=== PATIENT | female | born 1950 | race Caucasian/White ===

== ENCOUNTER → 2018-11-23 | Outpatient (REF) | payer MEDICARE, MEDICAID ==
[2018-11-23 15:19] LABS: BACTERIA, URINE AUTO 1+ (NEGATIVE); MUCUS, URINE SMALL (NEGATIVE); RBC, URINE AUTO 2 /HPF (0-3); SQUAMOUS EPITHELIAL CELL UR AU 0 /HPF (0-6); WBC, URINE AUTO 32 /HPF (0-3)
== END ==
LOC: M SMT 14:44
PROVIDERS: ATTEND Specialist
DX: R35.0 Frequency of micturition (principal)
CPT/HCPCS: 51798; 81015; 87086; G0463

== ENCOUNTER → 2018-12-10 | Outpatient (REF) | payer MEDICARE, MEDICAID ==
[2018-12-10 18:56] LABS: APPEARANCE, URINE CLEAR (CLEAR); BACTERIA, URINE AUTO 1+ (NEGATIVE); BILIRUBIN, URINE AUTO NEGATIVE (NEGATIVE); BLOOD, URINE BLOOD NEGATIVE (NEGATIVE); COLOR, URINE YELLOW (YELLOW); GLUCOSE, URINE (UA) AUTO NEGATIVE (NEGATIVE); KETONE, URINE AUTO NEGATIVE (NEGATIVE); LEUKOCYTE ESTERASE, URINE AUTO 2+ (NEGATIVE); NITRITE, URINE AUTO NEGATIVE (NEGATIVE); PROTEIN, URINE AUTO 1+ mg/dL (NEGATIVE); RBC, URINE AUTO 5 /HPF (0-3); SPECIFIC GRAVITY URINE AUTO 1.017 (1.002-1.035); SQUAMOUS EPITHELIAL CELL UR AU 1 /HPF (0-6); TRANSITIONAL EPITHELIAL AUTO <1 /HPF; UROBILINOGEN, URINE AUTO 0.2 mg/dL (0.0-2.0); WBC, URINE AUTO 63 /HPF (0-3)
== END ==
LOC: M SMT 17:14
PROVIDERS: ATTEND Nurse Practitioner Women's Health
DX: N39.0 Urinary tract infection, site not specified (principal)

== ENCOUNTER → 2018-12-17 | Outpatient (REF) | payer MEDICARE, MEDICAID ==
[2018-12-17 19:02] LABS: APPEARANCE, URINE CLOUDY (CLEAR); BACTERIA, URINE AUTO 2+ (NEGATIVE); BILIRUBIN, URINE AUTO NEGATIVE (NEGATIVE); BLOOD, URINE BLOOD NEGATIVE (NEGATIVE); COLOR, URINE YELLOW (YELLOW); GLUCOSE, URINE (UA) AUTO NEGATIVE (NEGATIVE); KETONE, URINE AUTO NEGATIVE (NEGATIVE); LEUKOCYTE ESTERASE, URINE AUTO TRACE (NEGATIVE); MUCUS, URINE SMALL (NEGATIVE); NITRITE, URINE AUTO NEGATIVE (NEGATIVE); PROTEIN, URINE AUTO NEGATIVE (NEGATIVE); RBC, URINE AUTO 3 /HPF (0-3); SQUAMOUS EPITHELIAL CELL UR AU 0 /HPF (0-6); TRANSITIONAL EPITHELIAL AUTO <1 /HPF; UROBILINOGEN, URINE AUTO 0.2 mg/dL (0.0-2.0); WBC, URINE AUTO 10 /HPF (0-3)
== END ==
LOC: M SMT 17:39
PROVIDERS: ATTEND Nurse Practitioner Women's Health
DX: N39.0 Urinary tract infection, site not specified (principal); R35.0 Frequency of micturition
CPT/HCPCS: 51729; 51741; 51784; 51797; 81001; 87086; G0463

== ENCOUNTER → 2019-11-27 | Outpatient (CLI) | payer MEDICARE, MEDICAID ==
[~2019-11-27] MED LIST: ACET25TA12 PO; ALBU83IN INH; ALEN35TA6 PO; ALLE4TAB11 PO; AMLO25TA PO; BASA100I SC; CAL-TAB4 PO; CETI10CA13 PO; CLEAPOW10 PO; DONE10TA90 PO; FLOM0.4C39 PO; HYDR-3713 PO; LETR2.5T2 PO; LIDO1CRE2 TOP; LIDO5CRE6 EX; LOSA100T50 PO; MAGN250T7 PO; MAPA500C PO; MECL12.589 PO; MEMA10TA19 PO; METF-839 PO; METH-855 PO; MYRB50TA PO; NEUR100C PO; NO ITAB PO; NORV2TAB PO; NOVOINJ3 SC; PERF20NE2 INH; PRESCAP PO; PROAAER10 INH; PROBCAP14 PO; SERT-141 PO; SIMV20TA22 PO; TIZA2CAP PO; YUPE175S INH
== END ==
LOC: M LABSMTC 11:15
PROVIDERS: ATTEND Anesthesiology
DX: Z03.818 Encounter for observation for suspected exposure to other biological agents ruled out (principal); Z11.59 Encounter for screening for other viral diseases
CPT/HCPCS: C9803; U0003

== ENCOUNTER 2019-11-30 07:55 | Day surgery (SDC) | payer MEDICARE, MEDICAID ==
[~2019-11-30] VITALS: Ht 152.4 cm; Wt 90.3 kg
[~2019-11-30 07:55] MED LIST changes: +LIDOCAINE 1% MDV 20ML VIAL SQ PRN; +ceFAZolin SOD 2 GM in IV 1 EA IV ONE
[2019-11-30] MEDS ORDERED: ROCURONIUM BROMIDE 50 MG/5 ML VIAL As Ordered ONE (09:13)
[2019-11-30] MEDS ORDERED: ONDANSETRON 4MG/2ML VIAL As Ordered ONE (09:13)
[2019-11-30] MEDS ORDERED: propofoL 200 MG/20 ML VIAL As Ordered ONE (09:13)
[2019-11-30] MEDS ORDERED: LIDOCAINE 2% 100MG/5ML SDV (FOR ANES.) As Ordered ONE (09:13)
[2019-11-30] MEDS ORDERED: METOCLOPRAMIDE INJ 10MG/2ML VIAL (J2765 PER 1) As Ordered ONE (09:13)
[2019-11-30] MEDS ORDERED: fentaNYL 250 MCG/5 ML INJECTION (J3010) As Ordered ONE (09:14)
[2019-11-30] MEDS ORDERED: BUPIVACAINE HCL 0.25% 30ML VIAL As Ordered ONE (09:17)
[2019-11-30] MEDS ORDERED: LIDOCAINE 1% SDV 30ML VIAL As Ordered ONE (09:17)
[2019-11-30] MEDS ORDERED: LR 1,000 ML IV ONE (09:30)
[2019-11-30] MEDS ORDERED: ePHEDrine SULFATE 25 MG/5 ML(5MG/ML) SYRINGE As Ordered ONE (11:05)
[2019-11-30] MEDS ORDERED: SUGAMMADEX SODIUM 500 MG/5 ML VIAL (BRIDION) As Ordered ONE (11:05)
[2019-11-30] MEDS ORDERED: fentaNYL 100 MCG/2 ML INJECTION (J3010) IV PRN (11:45)
[2019-11-30] MEDS ORDERED: LR 1,000 ML IV SCH (11:45)
[2019-11-30] MEDS ORDERED: ONDANSETRON 4MG/2ML VIAL IV PRN (11:45)
[2019-11-30] MEDS ORDERED: oxyCODONE 5MG TAB PO PRN (11:45)
[2019-11-30] MEDS ORDERED: PERCOCET 5MG/325MG TAB PO PRN (11:45)
--- NOTE | 2019-11-30 12:02 | ROOPDOC ---
[facility] Report Of Operation Report of Operation DATE OF PROCEDURE: 11/30/19 PREPROCEDURE DIAGNOSIS: Urinary Retention. POSTPROCEDURE DIAGNOSIS: Urinary Retention. PROCEDURE: Open cystotomy with suprapubic catheter placement. SURGEON: Florence Shukla MD CUSTOMER SALES REPRESENTATIVE: None. ANESTHESIA: General. OPERATIVE INDICATIONS: This is an 68-year-old female with urinary retention managed with a chronic indwelling catheter. She was brought to the operating room today for the above procedure. DESCRIPTION OF PROCEDURE: The patient was brought to the operating room and generall anesthesia was administered. Prophylactic antibiotics were infused. She was placed in the supine position and prepped and draped in the usual sterile fashion. At this point, an 18Fr Smart catheter was inserted in the urethra and advanced into the bladder. The balloon was filled with 10mL of sterile water and the catheter was clamped off. At this point, an approximately 5-6 cm suprapubic incision was made. We then dissected down through the subcutaneous tissues. The rectus fascia was then opened using electrocautery and then the bellies of the rectus muscle were bluntly spread. At this point, the bladder was then filled with normal saline using the urethral catheter. At this point, we dissected down to the bladder. The bladder was then palpated and then a syringe was utilized to aspirate what appeared to be the bladder. And at this point, clear fluid did aspirate into the syringe. This confirmed we were indeed staring at the bladder. I then used a #2-[address] a pursestring stitch through the dome of the bladder. At this point, a cystotomy was then made in the middle of the pursestring stitch and then clear fluid drained out. I then inserted a #20-[place]ese catheter into the cystostomy and the balloon was filled with 7 mL of sterile water. The pursestring stitch was then tied down around the #20-[place] catheter. Once this was done, I then irrigated the pelvis around the bladder several times and then suctioned out the fluid. We then closed the rectus fascia with interrupted #1 non-looped PDS sutures in a [id number] fashion. Once the fascia was closed, the subcutaneous tissues were reapproximated using interrupted #3-0 Vicryl suture. The skin was then closed around the suprapubic catheter using a running #4-0 Monocryl subcuticular suture. The suprapubic catheter was then further secured to the skin with a #2-0 Prolene suture. At this point, Dermabond and dressings were applied, and this marked the conclusion of the procedure. The suprapubic catheter was connected to gravity drainage. The patient was then awakened from anesthesia and transported to the recovery room in stable condition. Estimated blood loss: 10 mL. Complications: None. Specimens: None. PLAN: The patient will follow up in clinic in 6 weeks for her first suprapubic catheter change. FLORENCE SHUKLA MD Nov 30, 2019 12:02
[2019-11-30 15:16] VITALS: BP 129/61
== END 2019-11-30 15:21 | disposition home or self-care (01) ==
LOC: M SDC 07:55
PROVIDERS: ATTEND Urology
CPT/HCPCS: 51040; J0690; J2405; J2765; J3010

== ENCOUNTER → 2020-03-08 | Outpatient (REF) | payer MEDICARE, MEDICAID ==
[~2020-03-08] MED LIST changes: +ALEN35TA54 PO; -ALEN35TA6 PO; -LIDOCAINE 1% MDV 20ML VIAL SQ PRN; -ceFAZolin SOD 2 GM in IV 1 EA IV ONE
[2020-03-08 18:06] LABS: APPEARANCE, URINE MANUAL CLOUDY (CLEAR); COLOR, URINE MANUAL LT YELLOW (YELLOW); PROTEIN, URINE MANUAL 3+ mg/dL (NEGATIVE); SPECIFIC GRAVITY,URINE MANUAL 1.005 (1.002-1.035)
[2020-03-08 18:07] LABS: BILIRUBIN, URINE MANUAL NEGATIVE (NEGATIVE); BLOOD URINE MANUAL POSITIVE (NEGATIVE); GLUCOSE, URINE (UA) MANUAL NEGATIVE (NEGATIVE); KETONE, URINE MANUAL NEGATIVE (NEGATIVE); LEUKOCYTE ESTERASE, URINE MAN POSITIVE (NEGATIVE); NITRITE, URINE MANUAL NEGATIVE (NEGATIVE); UROBILINOGEN, URINE MANUAL NORMAL (NORMAL)
[2020-03-08 18:09] LABS: RBC, URINE 15-20 /hpf (0-3); SQUAMOUS EPITHELIAL CELL URINE SMALL AMOUNT /hpf (SMALL AMT)
[2020-03-08 18:10] LABS: AMORPHOUS SEDIMENT, URINE LARGE AMOUNT (NEGATIVE); BACTERIA, URINE MOD AMOUNT; HYALINE CAST, URINE NONE SEEN /lpf (0-1); MUCUS, URINE LARGE AMOUNT (NEGATIVE); TRIPLE PHOSPHATE CRYSTAL,URINE SMALL AMOUNT /hpf
== END ==
LOC: M SMT 17:08
PROVIDERS: ATTEND Nurse Practitioner Women's Health
DX: N39.0 Urinary tract infection, site not specified (principal)

== ENCOUNTER 2021-05-22 15:05 | Inpatient (IN) | payer MEDICARE, MEDICAID ==
[~2021-05-22] VITALS: Ht 162.6 cm; Wt 88.2 kg
[~2021-05-22 15:05] MED LIST changes: -ALEN35TA54 PO; +ALEN35TA56 PO; +MECL-136 PO; -MECL12.589 PO
[2021-05-22] MEDS ORDERED: AMOX875T2 (18:33)
[2021-05-22] MEDS ORDERED: ATOR1TAB21 (18:33)
[2021-05-22] MEDS ORDERED: FLUC150T (18:33)
--- NOTE | 2021-05-22 20:55 | REPVR ---
PROCEDURE INFORMATION: Exam: CT Abdomen And Pelvis Without Contrast Exam date and time: 05/22/2021 7:09 PM Age: 70 years old Clinical indication: Device placement; Urinary device; Other: Suprapubic catheter; Additional info: Verify placement of suprapubic catheter TECHNIQUE: Imaging protocol: Computed tomography of the abdomen and pelvis without contrast. Radiation optimization: All CT scans at this facility use at least one of these dose optimization techniques: automated exposure control; mA and/or kV adjustment per patient size (includes targeted exams where dose is matched to clinical indication); or iterative reconstruction. COMPARISON: No relevant prior studies available. FINDINGS: Tubes, catheters and devices: Patient has reported history of a suprapubic catheter placed in the urinary bladder. There is no catheter demonstrated within the urinary bladder however there is an apparent dislocated catheter located in the low anterior abdominal wall. Lungs: Parenchymal infiltrate right lung base associated with thickened airways, findings suggestive of reactive airway disease and/or bronchitis with possible associated pneumonitis. Liver: Normal. No mass. Gallbladder and bile ducts: Normal. No calcified stones. No ductal dilation. Pancreas: Normal. No ductal dilation. Spleen: Normal. No splenomegaly. Adrenal glands: There is a focal hypodense mass in the right adrenal gland measuring 1.8 x 2.1 cm., consistent in appearance and density with a benign adrenal adenoma. Kidneys and ureters: There has been a right nephrectomy. Typically expected postoperative changes demonstrated. No mass demonstrated. There are multiple simple left renal cysts measuring up to 3.9 cm. No follow-up suggested. Hyperdense foci demonstrated in the left kidney measuring up to 3.9 x 3 cm which may represent hyperdense cysts. Correlation with ultrasound or MRI suggested. Stomach and bowel: There is increased feces throughout the colon consistent with constipation. Appendix: No evidence of appendicitis. Intraperitoneal space: Unremarkable. No free air. No significant fluid collection. Vasculature: The aortoiliac vessels demonstrate moderate atherosclerotic calcification. Lymph nodes: Unremarkable. No enlarged lymph nodes. Urinary bladder: Unremarkable as visualized. Reproductive: Unremarkable as visualized. Bones/joints: Age-indeterminate healing rib fractures right 9th and 11th ribs. Healed rib fractures left 9th and 10th ribs. Soft tissues: There is a small umbilical hernia. There is no evidence of incarceration. IMPRESSION: 1. Parenchymal infiltrate right lung base associated with thickened airways, findings suggestive of reactive airway disease and/or bronchitis with possible associated pneumonitis. 2. There is a focal hypodense mass in the right adrenal gland measuring 1.8 x 2.1 cm., consistent in appearance and density with a benign adrenal adenoma. 3. There is increased feces throughout the colon consistent with constipation. 4. There has been a right nephrectomy. Typically expected postoperative changes demonstrated. No mass demonstrated. 5. There are multiple simple left renal cysts measuring up to 3.9 cm. No follow-up suggested. Hyperdense foci demonstrated in the left kidney measuring up to 3.9 x 3 cm which may represent hyperdense cysts. Correlation with ultrasound or MRI suggested. 6. Patient has reported history of a suprapubic catheter placed in the urinary bladder. There is no catheter demonstrated within the urinary bladder however there is an apparent dislocated catheter located in the low anterior abdominal wall. COMMENTS: 1. Consistent with the [employer]'s Incidental Findings Committee white paper (J Am Piper Radiol 2017): For any incidental adrenal lesion greater than 1 cm but less than 4 cm classified in this report as benign, likely benign, or containing fat (including classification as an adenoma or myelolipoma), no follow-up imaging is recommended per consensus recommendations based on imaging criteria. Further lab evaluation could be pursued if warranted based on clinical findings. 2. Consistent with the [employer]'s Incidental Findings Committee white paper (J Am Piper Radiol 2018): Any incidental renal lesion less than 1 cm or classified as too small to characterize, or any incidental cystic renal lesion characterized as simple-appearing, is likely benign. No follow-up imaging is recommended for these lesions per consensus recommendations based on imaging criteria. Electronically signed by: Pelon Browne On 05/22/2021 20:55:05 PM
--- NOTE | 2021-05-22 21:38 | SMCUROLCON ---
Urology Consultation General Date of Consultation 05/22/21 Reason For Consultation This patient is seen for Suprapubic Catheter Problem. History of Present Illness THE PATIENT IS A 70-YEAR-OLD FEMALE WITH DEMENTIA WITH A NEUROGENIC BLADDER WITH CHRONIC URINARY RETENTION NOW BEING MANAGED BY A SUPRAPUBIC CATHETER WHICH WAS PLACED IN NOVEMBER 2019.. Patient present to the ER, the 14Fr SPT was not draining. The ER deflated the balloon allowing thje catheter to unkink and the was secondary drainage of urine via the subcutaneous pocket created by the 10 cc balloon. The SPT site was prepped with betadine and attempts to advance the 14 and 16 straight and coude tip catheters were unsuccessful. A a transurethral Smart will be inserted. Patient and family will f/u with [facility] to schedule a new cystostomy in the operating room. Allergies Allergies: Coded Allergies: Sulfa (Sulfonamide Antibiotics) (Verified Allergy, Intermediate, HIVES, 11/30/19) heparin (porcine) (Verified Allergy, Intermediate, HIVES, 11/30/19) latex (Verified Allergy, Intermediate, hives, 05/22/21) Vital Signs/I&O Vital Signs Date Time Temp Pulse Resp B/P (MAP) Pulse Ox O2 Delivery O2 Flow Rate FiO2 05/22/21 19:02 98.2 05/22/21 18:23 74 18 115/75 (88) 100 Nasal Cannula 2.0 Laboratory Data 24H Labs Laboratory Tests 2 05/22/21 20:19: Urine Color YELLOW, Urine Appearance HAZY, Urine pH 6.0, Urine Specific [place] 1.012, Urine Protein 1+H, Urine Glucose (UA) NEGATIVE, Urine Ketones NEGATIVE, Urine Blood 2+H, Urine Nitrite NEGATIVE, Urine Bilirubin NEGATIVE, Urine Urobilinogen 0.2, Urine Leukocyte Esterase 2+H, Urine WBC (Auto) 23H, Urine RBC (Auto) 83H, Urine Hyaline Casts (Auto) 0, Urine Bacteria (Auto) NEGATIVE, Urine Squamous Epithelial Cells 0, Urine Sperm (Auto) 05/22/21 20:42: Microbiology Microbiology 05/22/21 Urine Culture, Received Pending STEVO BRITT M.D. May 22, 2021 21:28
[2021-05-22 22:05] LABS: RSV AMPLIFICATION NEGATIVE (NEGATIVE)
[2021-05-23 00:08] LABS: ALBUMIN 2.8 GM/DL (3.2-5.2); ALT/SGPT 38 U/L (12-78); BILIRUBIN,DIRECT 0.1 MG/DL (0.0-0.2); BILIRUBIN,TOTAL 0.4 MG/DL (0.2-1.0); BLOOD UREA NITROGEN 19 MG/DL (7-18); CALCIUM LEVEL 8.2 MG/DL (8.8-10.2); CARBON DIOXIDE LEVEL 29 MEQ/L (21-32); CHLORIDE LEVEL 109 MEQ/L (98-107); CREATININE FOR GFR 0.76 MG/DL (0.55-1.30); GLOMERULAR FILTRATION RATE > 60.0 (>39); GLUCOSE, FASTING 58 MG/DL (70-100); NT-PRO BNP 1082 PG/ML (<125); POTASSIUM SERUM 3.1 MEQ/L (3.5-5.1); SODIUM LEVEL 147 MEQ/L (136-145); TOTAL PROTEIN 5.7 GM/DL (6.4-8.2)
[2021-05-23 00:11] LABS: EOS % 0.1 % (0.0-3.0); HEMATOCRIT 27.9 % (36.0-47.0); HEMOGLOBIN 7.7 g/dl (12.0-15.5); LYMPH # 2.7 10^3/uL (1.5-5.0); LYMPH % 13.1 % (24.0-44.0); MEAN CORPUSCULAR HEMOGLOBIN 21.8 pg (27.0-33.0); MEAN CORPUSCULAR HGB CONC 27.6 g/dl (32.0-36.5); MONO # 2.2 10^3/uL (0.0-0.8); MONO % 10.9 % (2.0-8.0); NEUTROPHILS # 15.2 10^3/uL (1.5-8.5); NEUTROPHILS % 74.6 % (36.0-66.0); PLATELET COUNT, AUTOMATED 237 10^3/uL (150-450); RED BLOOD COUNT 3.53 10^6/uL (4.00-5.40); WHITE BLOOD COUNT 20.4 10^3/uL (4.0-10.0)
--- NOTE | 2021-05-23 00:29 | REPVR ---
PROCEDURE INFORMATION: Exam: XR Chest Exam date and time: 05/22/21 (10:43pm) Age: 70 years old Clinical indication: Edema TECHNIQUE: Imaging protocol: Portable CXR Views: 1 view COMPARISON: CT ABDOMEN PELVIS of 05/22/21 FINDINGS: No prior chest films are available for comparison. Large patient size. The patient is rotated to an SENEGALESE position. Heart size is difficult to evaluate on this rotated film. No focal infiltrates. No pleural effusions. No significant vascular congestion. No pneumothorax. Prominent breast shadows. IMPRESSION: No acute findings. Electronically signed by: Pat Mallory On 05/23/2021 00:28:58 AM
--- NOTE | 2021-05-23 02:57 | HPEPDOC ---
[facility] Medical History & Physical Date of Admission May 23, 2021 Date of Service: May 23, 2021 Attending Physician: SHAVON SWAIN MD History and Physical CHIEF COMPLAINT: Suprapubic catheter dysfunction, potential placement HISTORY OF PRESENT ILLNESS: Patient is a 70-year-old female with a history of neurogenic bladder, GILBERT, CHF, COPD on 2 L oxygen at home, bedbound, presents from home due to suprapubic catheter dysfunction. The suprapubic catheter was removed in the ER and Smart catheter was placed after evaluation with urology. The patient was brought in by her daughter because the patient's daughter reported that she could not take care of her at home any longer. The patient was unaware of this and does not want to be in the hospital upon medical interview. She reports that she is not having any acute symptoms. I explained to the patient that her suprapubic catheter was not working and therefore we had to change it out for a Smart catheter. Even after explaining to her about the importance of being medically stable before she can be placed at home or anywhere else, the patient repeatedly asked why she was in the hospital. Patient's chart has her discharge summary from [facility] and [facility] form reporting that the patient is DNR, intubation trial. Patient's daughter's name is Angelica Benito to be contacted at [phone]. REVIEW OF SYSTEMS: unable to obtain complete ROS because the patient has dementia PAST MEDICAL / SURGICAL HISTORY: Type 2 diabetes mellitus, insulin-dependent Hypertension Malignant neoplasm of left breast, ER positive Obstructive sleep apnea compliant on CPAP COPD / Chronic bronchitis Benign adrenal adenoma Constipation Obesity Chronic pain Depression Recurrent falls Immobility, dependent on enabling machines, wheelchair, and devices Dyslipidemia Lumbar radiculopathy Lumbar spondylosis Lumbar spine Quan low listhesis Degenerative disc disease Displacement of lumbar intervertebral disks with radiculopathy Cervicalgia Neurological tremors in hands and legs Osteoporosis Osteoarthritis Scoliosis of the thoracic spine Chronic vascular dementia Alzheimer's disease Congestive heart failure Pulmonary embolism History of MRSA pneumonia Benign nodule in each lung Hepatic lesion Chronic seasonal and environmental allergies Chronic UTIs Suprapubic catheter for neurogenic bladder Incontinence of feces History of COVID-19 Aspiration risk Open cystostomy suprapubic catheter placement, 12/01/2019 SOCIAL HISTORY: Patient presents from her daughter's house. Patient reports that she smoked in the past, however cannot quantify the amount. Patient denies alcohol, marijuana, and illicit drug use. FAMILY HISTORY: Patient cannot recall. ALLERGIES: Please see below. HOME MEDICATIONS: Please see below. PHYSICAL EXAMINATION: Vital Signs Date Time Temp Pulse Resp B/P (MAP) Pulse Ox O2 Delivery O2 Flow Rate FiO2 05/22/21 15:20 68 100 Nasal Cannula 2.0 05/22/21 15:21 101/53 (69) 05/22/21 18:23 18 05/22/21 19:02 98.2 GENERAL APPEARANCE: Patient is in no acute distress, is on 3 L oxygen via nasal cannula, is lying in the gurney in the 30 degree upright position, expresses tangential thought process, has some memory deficits, however is cooperative on exam. HEENT: Normocephalic atraumatic, no ocular discharge, no rhinorrhea, mucous membranes moist, EOMI. CARDIOVASCULAR: Distant heart sounds consistent with pickwickian syndrome, regular rate and rhythm, no murmurs rubs or gallops. LUNGS: Bibasilar crackles appreciated, no rales or rhonchi. ABDOMEN: Soft, tender in right lower quadrant with deep pressure, nondistended, increased abdominal girth, suprapubic stoma present from previous suprapubic catheter. MUSCULOSKELETAL: Poor muscle tone, upper extremity strength 5 out of 5, lower extremity strength could not be appreciated as patient was unable to move her le gs. Patient reports that this is chronic. EXTREMITIES: No clubbing, onychomycosis of bilateral toenails, pitting edema present in bilateral lower extremities from feet to knees. NEUROLOGICAL: Cranial nerves II to XII intact, focal motor deficits as described above about lower extremities, memory deficits appreciated during medical interview. PSYCHIATRIC: Flat affect, alert and oriented to self, confused about where she is, unable to answer to what year it is. LABORATORY DATA: IMAGING: Chest x-ray, 05/22/2021no acute findings. Abdominal/pelvic CT, 05/22/2021arenchymal infiltrate right lung base associated with thickened airways, findings suggestive of reactive airway disease and/or bronchitis with possible associated pneumonitis. There is a focal hypodense mass in the right adrenal gland measuring 1.8 x 2.1 cm., consistent in appearance and density with a benign adrenal adenoma. There is increased feces throughout the colon consistent with constipation. There has been a right nephrectomy. Typically expected postoperative changes demonstrated. No mass demonstrated. There are multiple simple left renal cysts measuring up to 3.9 cm. No follow-up suggested. Hyperdense foci demonstrated in the left kidney measuring up to 3.9 x 3 cm which may represent hyperdense cysts. Correlation with ultrasound or MRI suggested. Patient has reported history of a suprapubic catheter placed in the urinary bladder. There is no catheter demonstrated within the urinary bladder however there is an apparent dislocated catheter located in the low anterior abdominal wall. MICROBIOLOGY:COVID negative ASSESSMENT/PLAN: Patient is a 70-year-old female with a complicated history who presents with suprapubic catheter dysfunction and hospitalized for potential placement. #Suprapubic catheter dysfunction Changed out suprapubic catheter and placed new Smart catheter Continue to monitor output out of Smart catheter #CAUTI / Neurogenic bladder with history of suprapubic catheter placed Urinalysis is positive Urologist saw patient in ED and advised suprapubic catheter to be switched to Smart catheter which was done in the ER Patient was already scheduled to be started on Augmentin 875 mg every 12 hours for 7 days # Hypoglycemia / IDDM Patient's admitting glucose level was in the 50s -f/u frequent FSBS -hypoglycemia protocol -D10 W Patient is normally on basal insulin: A.m. 36 units, p.m. 30 units Start sliding scale insulin at this time & holding basal insulin Continue to follow glucose levels to adjust basal insulin Hold home semaglutide Consistent carbohydrate diet/2 g sodium diet Continue home gabapentin for neuropathy ? #Leukocytosis -likely reactive because the patient was given prednisone 20 mg twice a day for 5 days starting on April 19, 2021 at [facility], unknown whether it she is still taking CXR was negative Patient was also prescribed 2 weeks of Augmentin, starting on April 19, 2021 at [facility] for community-acquired pneumonia Lactic acid and procalcitonin ordered Continue to monitor CBC with differential daily #Microcytic anemia -her Hg is 7.7 -f/u iron studies reticulocyte count and stool occult #Hypernatremia Likely secondary to low effective circulatory volume -pt is on D10 for hyperglycemia Continue to monitor BMP #Hypokalemia -replete K -f/u Mag #Elevated BNP -possibly due to unspecified type of CHF or pulmonary HTN Echo report could not be found Chest x-ray did not show congestion - continue to weigh daily and observe strict I's and O's. Titrate oxygen as needed, patient is on 2 to 3 L at home 2 g sodium diet #Pseudohypocalcemia -albumin is low -corrected calcium is 9.2 #Hx of Pulmonary Embolism -apixaban #History of COPD Continue home revefenacin Continue home albuterol Continue home formoterol #Dementia -she can't take care of herself and has dysphagia and fecal incontinence likely as a result of advance dementia Continue home memantine Continue home donepezil -aspiration precautions Nursing order placed for thickened liquids administration only Mechanical soft diet Use adult diapers -PFS consult has been placed for placement in a SNF #Osteoporosis Continue home alendronate, once weekly, last administered 05/20/2021. #GILBERT, compliant on CPAP Continue using home CPAP #Depression Continue home sertraline #History of environmental allergies Hold cetirizine home dose #Intertriginous rash Apply topical nystatin cream to intertriginous regions. #History of GERD Hold home famotidine Consider starting patient on Protonix, patient does have osteoporosis and is on alendronate for it so this should be used conservatively. #Recent history of Community-acquired PNA Continue patient's prednisone dose, 20 mg for 3 days According to discharge records patient started receiving azithromycin 250 milligrams tablets every Thursday and Thursday which were last taken 05/15/2021. According to the schedule the patient would be due for her next dose on 05/24/2021. Retrieve more details of these records to see if patient still needs azithromycin, as chest x-ray is clear. #Constipation Continue home probiotics Continue home bowel regimen #Neoplasm of the breast Continue home letrozole #Class 2 obesity -complicates care VTE prophylaxis: Patient to resume home apixaban Disposition: Admit to Med/Surg with telemetry, expect at least 2 midnight stay Home Medications Scheduled Acetaminophen (Mapap) 500 Mg Capsule, 500 MG PO Q6HP Alendronate Sodium (Alendronate Sodium) 35 Mg Tablet, 35 MG PO QWEEK Amlodipine Besylate (Amlodipine Besylate) 2.5 Mg Tablet, 5 MG PO DAILY Calcium Citrate/Vitamin D2 (Justen-Citrate Plus Vitamin D Tab) 1 Each Tablet, 1 TAB PO DAILY Cetirizine HCl (Allergy Relief) 10 Mg Capsule, 10 MG PO DAILY Donepezil HCl (Donepezil HCl) 10 Mg Tablet, 10 MG PO DAILY Formoterol Fumarate (Perforomist) 20 Mcg/2 Ml Vial.neb, 20 MCG INH BID Gabapentin (Neurontin) 100 Mg Capsule, 100 MG PO TID Insulin Aspart (Novolog Flexpen) 100 Unit/1 Ml Insuln.pen, 10 UNITS SC AC Insulin Glargine,Hum.rec.anlog (Basaglar Kwikpen U-100) 100 Unit/1 Ml Insuln.pen, 34 UNIT SC QHS Lactobacillus Acidophilus (Probiotic) 1 Each Capsule, 1 CAP PO DAILY Letrozole (Letrozole) 2.5 Mg Tablet, 2.5 MG PO DAILY Lidocaine (Lidocaine) 5 Gm Cream..g., 4 % TOP TIDP Losartan Potassium (Losartan Potassium) 100 Mg Tablet, 100 MG PO DAILY Memantine HCl (Memantine HCl) 10 Mg Tablet, 10 MG PO BID Methenamine Hippurate (Methenamine Hippurate) 1 Gm Tablet, 1 GM PO DAILY Mirabegron (Myrbetriq) 50 Mg Tab.er.24h, 50 MG PO DAILY Multivitamin with Minerals (Multiple Vitamin) 1 Each Tablet, 1 TAB PO DAILY Revefenacin (Yupelri) 175 Mcg/3 Ml Vial.neb, 175 MCG INH DAILY Sertraline Hcl (Sertraline HCl) 50 Mg Tablet, 50 MG PO DAILY Vit A/Vit C/Vit E/Zinc/Copper (Preservision Areds Softgel) 1 Each Capsule, 1 CAP PO DAILY Scheduled PRN Albuterol Sulf (Albuterol Sulfate) 2.5 Mg/3 Ml Vial.neb, 2.5 MG INH for SHORTNESS OF BREATH Albuterol Sulfate (Proair Hfa) 8.5 Gm Hfa.aer.ad, 2 PUFF INH Q6HP PRN for SHORTNESS OF BREATH Hydrocodone/Acetaminophen (Hydrocodone-Acetamin 5-325 mg) 1 Each Tablet, 1 TAB PO QPM PRN for PAIN MDD 4 Meclizine HCl (Meclizine HCl) 12.5 Mg Tablet, 25 MG PO DAILYPRN PRN for DIZZINESS Polyethylene Glycol 3350 (Clearlax) 116 Gm Powder, 1 POW PO PRN PRN for CONSTIPATION Miscellaneous Medications Amoxicillin/Potassium Clav (Amox-Clav 875-125 mg Tablet) 1 Each Tablet Atorvastatin Calcium (Atorvastatin Calcium) 20 Mg Tablet Fluconazole (Fluconazole) 150 Mg Tablet Allergies Coded Allergies: Sulfa (Sulfonamide Antibiotics) (Verified Allergy, Intermediate, HIVES, 11/30/19) heparin (porcine) (Verified Allergy, Intermediate, HIVES, 11/30/19) latex (Verified Allergy, Intermediate, hives, 05/22/21) A-FIB/CHADSVASC A-FIB History Current/History of A-Fib/PAF?: No Current PO Anticoag Therapy: Yes GME ATTESTATION GME ATTESTATION My faculty preceptor for this patient encounter was physically present during the encounter and was fully available. All aspects of the patient interview, examination, medical decision making process, and medical care plan development were reviewed and approved by the faculty preceptor. The faculty preceptor is aware and concurs with the plan as stated in the body of this note and will attest to such by his/her cosignature. ATTENDING NOTE time of service 120AM I examined the patient, discussed the case with and agree with the findings as documented. Rod Fuller DO May 23, 2021 02:57 SHAVON SWAIN MD May 23, 2021 05:25
[2021-05-23] MEDS ORDERED: ALBUTEROL 90 MCG/ACT 8GM HFA INHALER INH PRN (03:20)
[2021-05-23] MEDS ORDERED: CALCIUM CARBONATE 500 MG CHEW U/D PO ONE (03:20)
[2021-05-23] MEDS ORDERED: MOM 30ML SUSPENSION UDC PO PRN (03:30)
[2021-05-23 04:00] VITALS: O2SAT 97
[2021-05-23 04:12] VITALS: O2SAT 93
[2021-05-23] MEDS: KCL 10MEQ/100ML SWI (KRUN) 10 MEQ in IV 1 EA IV SCH ×3 (04:47→06:57)
[2021-05-23] MEDS ORDERED: D5W/0.9% SODIUM CHLORIDE 1,000 ML IV SCH (05:05)
[2021-05-23] MEDS ORDERED: GLUCAGON INJ 1MG VIAL SC PRN (05:05)
[2021-05-23] MEDS ORDERED: DEXTROSE 50% 50 ML SYRINGE IV PRN (05:05)
[2021-05-23] MEDS ORDERED: GLUCOSE 4GM CHEW TABLET PO PRN (05:05)
[2021-05-23 06:00] VITALS: BP 140/70
[2021-05-23] MEDS ORDERED: D10W 500 ML IV SCH ×2 (06:00)
[2021-05-23] MEDS: HumaLOG INSULIN (NovoLOG) PER UNIT SC SCH ×3 (06:00→17:37)
[2021-05-23] MEDS ORDERED: CAPS0.1C TOP (06:40)
[2021-05-23] MEDS ORDERED: ATOR1TAB21 PO (06:40)
[2021-05-23] MEDS ORDERED: CALC1TAB30 PO (06:40)
[2021-05-23] MEDS ORDERED: ELIQ5TAB PO (06:40)
[2021-05-23] MEDS ORDERED: VITMTA PO (06:40)
[2021-05-23] MEDS ORDERED: SEMA1PEN2 SQ (06:40)
[2021-05-23] MEDS ORDERED: ONDA4TAB6 PO (06:40)
[2021-05-23] MEDS ORDERED: METH-855 PO (06:40)
[2021-05-23] MEDS ORDERED: HOME MED LIST COMPLETE! XX SCH (06:40)
[2021-05-23] MEDS ORDERED: OXYC-517 PO (06:40)
[2021-05-23] MEDS ORDERED: OCUVTAB PO (06:40)
[2021-05-23] MEDS ORDERED: INSUDET SC ×2 (06:40)
[2021-05-23] MEDS ORDERED: FAMO1TAB11 PO (06:40)
[2021-05-23] MEDS ORDERED: CETI-14 PO (06:40)
[2021-05-23] MEDS ORDERED: LOSA25TA14 PO (06:40)
[2021-05-23] MEDS ORDERED: AUGM875T28 PO (06:40)
[2021-05-23] MEDS ORDERED: NYST1POW9 TOP (06:40)
[2021-05-23] MEDS ORDERED: POTA10TA67 PO (06:40)
[2021-05-23] MEDS ORDERED: MIRA1POW3 PO (06:40)
[2021-05-23] MEDS ORDERED: NAME10TA PO (06:40)
[2021-05-23] MEDS ORDERED: FURO20TA2 PO (06:40)
[2021-05-23] MEDS ORDERED: DILT240C47 PO (06:40)
[2021-05-23] MEDS ORDERED: BACITAB PO (06:40)
[2021-05-23] MEDS ORDERED: FLUC150T PO (06:40)
--- NOTE | 2021-05-23 06:44 | ECGEPIP ---
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
[2021-05-23] MEDS ORDERED: ALBUTEROL SULFATE 2.5 MG/0.5 ML INH NEB SOLN INH PRN (06:45)
[2021-05-23 07:10] LABS: ALBUMIN 2.9 GM/DL (3.2-5.2); ALT/SGPT 41 U/L (12-78); BILIRUBIN,TOTAL 0.4 MG/DL (0.2-1.0); BLOOD UREA NITROGEN 17 MG/DL (7-18); CALCIUM LEVEL 8.7 MG/DL (8.8-10.2); CARBON DIOXIDE LEVEL 31 MEQ/L (21-32); CHLORIDE LEVEL 108 MEQ/L (98-107); CREATININE FOR GFR 0.63 MG/DL (0.55-1.30); FERRITIN 13 NG/ML (8-252); GLOMERULAR FILTRATION RATE > 60.0 (>39); GLUCOSE, FASTING 57 MG/DL (70-100); IRON (FE) 17 UG/DL (50-170); MAGNESIUM LEVEL 2.2 MG/DL (1.8-2.4); PERCENT SATURATION 5.4 % (13.2-45.0); POTASSIUM SERUM 3.4 MEQ/L (3.5-5.1); SODIUM LEVEL 146 MEQ/L (136-145); TOTAL IRON BINDING CAPACITY 312 UG/DL (250-450); TOTAL PROTEIN 5.7 GM/DL (6.4-8.2)
[2021-05-23] MEDS ORDERED: NYSTATIN 100,000 UNITS/GM TOPICAL PWD 15 GM TOP PRN (07:15)
[2021-05-23] MEDS: FORMOTEROL FUMARATE 20 MCG/2 ML INHALATION SOLUTION (PERFOROMIST) INH SCH ×2 (07:54→19:08)
[2021-05-23] MEDS: OCUVITE 1 TAB PO SCH (08:32)
[2021-05-23] MEDS: FUROSEMIDE 20 MG TAB PO SCH (08:33)
[2021-05-23] MEDS: predniSONE 20 MG TAB PO SCH (08:33)
[2021-05-23] MEDS: GABAPENTIN 100 MG CAP PO SCH ×3 (08:33→20:46)
[2021-05-23] MEDS: CALCIUM/VITAMIN D 500 MG TAB PO SCH (08:33)
[2021-05-23] MEDS: guaiFENesin ER 600 MG TAB PO SCH ×2 (08:33→20:46)
[2021-05-23] MEDS: APIXABAN 5 MG TAB (ELIQUIS) PO SCH ×2 (08:33→20:46)
[2021-05-23] MEDS: MIRALAX *UNIT DOSE* 17GM PACKET PO SCH (08:33)
[2021-05-23] MEDS: MEMANTINE 5MG TABLET (NAMENDA) PO SCH ×2 (08:33→20:46)
[2021-05-23] MEDS: LOSARTAN 25 MG TAB PO SCH (08:34)
[2021-05-23] MEDS: POTASSIUM CHLORIDE 10MEQ SR TABLET PO SCH ×2 (08:34→20:46)
[2021-05-23] MEDS ORDERED: LOSARTAN 25 MG TAB PO SCH (09:00)
[2021-05-23] MEDS ORDERED: VITAMIN D (CHOLECALCIFEROL) 400 INTERNATIONAL UNITS TAB PO SCH (09:00)
[2021-05-23] MEDS ORDERED: MULTIVITAMINS/MINERALS THERAP 1 TAB PO SCH (09:00)
[2021-05-23] MEDS ORDERED: LOSARTAN 50MG TABLET PO SCH (09:00)
[2021-05-23] MEDS ORDERED: REVEFENACIN 175 MCG INH SCH (09:00)
[2021-05-23] MEDS ORDERED: AUGMENTIN 875 MG TAB PO SCH (09:00)
[2021-05-23] MEDS ORDERED: NYSTATIN CREAM 15 GM TOP SCH (09:00)
[2021-05-23 09:03] LABS: BASO % 0.1 % (0.0-1.0); EOS % 0.2 % (0.0-3.0); HEMATOCRIT 31.6 % (36.0-47.0); HEMOGLOBIN 8.6 g/dl (12.0-15.5); LYMPH # 2.1 10^3/uL (1.5-5.0); LYMPH % 11.5 % (24.0-44.0); MEAN CORPUSCULAR HEMOGLOBIN 21.7 pg (27.0-33.0); MEAN CORPUSCULAR HGB CONC 27.2 g/dl (32.0-36.5); MEAN CORPUSCULAR VOLUME 79.6 fl (80.0-96.0); MONO # 1.7 10^3/uL (0.0-0.8); MONO % 9.2 % (2.0-8.0); NEUTROPHILS # 14.4 10^3/uL (1.5-8.5); PLATELET COUNT, AUTOMATED 229 10^3/uL (150-450); RED BLOOD COUNT 3.97 10^6/uL (4.00-5.40); WHITE BLOOD COUNT 18.5 10^3/uL (4.0-10.0)
[2021-05-23] MEDS ORDERED: POTASSIUM CHLORIDE 10MEQ SR TABLET PO ONE (12:00)
[2021-05-23 12:39] LABS: BLOOD UREA NITROGEN 18 MG/DL (7-18); CALCIUM LEVEL 8.6 MG/DL (8.8-10.2); CARBON DIOXIDE LEVEL 31 MEQ/L (21-32); CHLORIDE LEVEL 102 MEQ/L (98-107); CREATININE FOR GFR 0.71 MG/DL (0.55-1.30); GLOMERULAR FILTRATION RATE > 60.0 (>39); GLUCOSE, FASTING 223 MG/DL (70-100); POTASSIUM SERUM 3.6 MEQ/L (3.5-5.1); SODIUM LEVEL 138 MEQ/L (136-145)
[2021-05-23] MEDS: cefTRIAXone SOD 1 GM in D5W MINI-BAG PLUS 50 ML IV SCH (13:40)
[2021-05-23 14:00] VITALS: BP 110/73
--- NOTE | 2021-05-23 14:07 | IPN ---
PROGRESS NOTE DATE: 05/23/2021 SUBJECTIVE: The patient is a little confused this morning but able to state if she has any pain. She denies dysuria, urgency, frequency, flank pain, fever or chills overnight. She is eating and wants to go home. No nausea or vomiting. No shortness of breath. OBJECTIVE: Vitals: Temperature 98, pulse 73, respiratory rate 20, blood pressure 145/72, 97% on two liters nasal cannula. General: Awake, alert and oriented to person, place and not to time, answering questions appropriately. No distress, no cyanosis or pallor. Lungs: Clear to auscultation, no wheezing or rales. Heart: S1, S2. Abdomen: Soft, Smart catheter in place, obese, positive bowel sounds in four quadrants. Extremities: No cyanosis or clubbing. LABORATORY DATA: White count 18.5, hemoglobin 8.6, hematocrit 31, platelet count 223. Sodium 146, potassium 3.4, chloride 108, bicarb 31, BUN 17, creatinine 0.063, glucose of 57. Laboratory data, imaging study, microbiology: Please see the chart. ASSESSMENT AND PLAN: This is a 70-year-old female with chronic dementia, lives in [place], with a chronic suprapubic catheter, found to have malfunctioning with leukocytosis and catheter associated urinary tract infection present on the hospital admission. She has history of neurogenic bladder with CHF, COPD on two liters of oxygen, bed-bound. ACTIVE ISSUES: 1. Suprapubic catheter dysfunction/catheter associated urinary tract infection. Patient was on Augmentin, changed to IV ceftriaxone until urine cultures are available. White count has decreased from 28,000 to 18,000. She is afebrile but is confused. 2. Acute delirium and chronic dementia due to UTI and malfunctioning suprapubic catheter. Continue with monitoring patient's hypernatremia, dehydration, electrolyte abnormalities and treat for infection with IV ceftriaxone until urine cultures have returned and with finalized sensitivities. 3. Hypernatremia due to decreased oral intake. Encourage fluid intake for now but limit to two liters due to history of CHF. 4. Hypokalemia. Supplemented. 5. CHF, diastolic dysfunction. Currently compensated. 6. Anemia. Repeat hemoglobin is 8.6, hematocrit of 31. No active bleeding. No RBC transfusion for now but we will continue to monitor. 7. COPD, compensated on two liters of oxygen. Decrease to keep saturations 88 to 92%. Currently 97 to 100%, two liters nasal cannula. 8. Bed-bound. Patient has care at home with history of neurogenic bladder. 9. Type 2 diabetes, insulin dependent. Continue on sliding scale insulin with coverage, finger sticks, q.a.c., h.s. 10. Hypertension, currently controlled. 11. History of left breast ER positive breast cancer. 12. GILBERT. Compliant with her CPAP. May resume CPAP in the hospital. 13. Depression, chronic. 14. Osteoporosis and osteoarthritis. Outpatient workup. 15. History of MRSA pneumonia. Monitor for symptoms. 16. History of COVID-19. Asymptomatic.
[2021-05-23 15:45] VITALS: O2SAT 91
[2021-05-23 16:00] LABS: HEMATOCRIT 27.3 % (36.0-47.0); HEMOGLOBIN 7.6 g/dl (12.0-15.5)
[2021-05-23] MEDS ORDERED: FUROSEMIDE 20MG/2ML VIAL (J1940) IV ONE (16:00)
[2021-05-23] MEDS: oxyCODONE 5MG TAB PO PRN ×2 (16:08→20:47)
[2021-05-23] MEDS: LACTOBACILLUS ACIDOPHILUS CAP (BACID) PO SCH (17:36)
[2021-05-23] MEDS: ATORVASTATIN 20 MG TAB PO SCH (20:42)
[2021-05-23] MEDS: DONEPEZIL 5 MG TAB PO SCH (20:46)
[2021-05-23] MEDS: LETROZOLE 2.5 MG TAB PO SCH (20:47)
[2021-05-23] MEDS ORDERED: ENTER DRUG NAME HERE (PATIENT'S OWN MED) MT SCH (21:00)
--- NOTE | 2021-05-23 21:00 | ECGEPIP ---
[facility] Test Date: 2021-05-23 Pat Name: LANA CUNNINGHAM Department: Room: [place] [address] Gender: Female White [employer]inder: EMELI : 1950 Requested By: Rod Trevino Order Number: [id number] Reading MD: Justice Nayak Measurements Intervals [place] Rate: 74 P: 33 [place]: 114 QRS: 29 QRSD: 82 T: 52 QT: 438 QTc: 486 Interpretive Statements Normal sinus rhythm with sinus arrhythmia Electronically Signed on 05-23-2021 21:00:49 EST by Justice Nayak
[2021-05-23 22:00] VITALS: BP 124/54
[2021-05-23 22:16] LABS: HEMOGLOBIN 7.3 g/dl (12.0-15.5)
[2021-05-24] VITALS (13 sets, daily range): BP systolic 100–147; BP diastolic 63–77; O2SAT 90
[2021-05-24] MEDS: HumaLOG INSULIN (NovoLOG) PER UNIT SC SCH ×5 (00:41→20:38)
[2021-05-24] MEDS: FORMOTEROL FUMARATE 20 MCG/2 ML INHALATION SOLUTION (PERFOROMIST) INH SCH ×2 (05:53→19:26)
[2021-05-24 06:47] LABS: BASO % 0.1 % (0.0-1.0); EOS # 0.1 10^3/uL (0.0-0.5); EOS % 0.6 % (0.0-3.0); HEMOGLOBIN 10.8 g/dl (12.0-15.5); LYMPH # 3.2 10^3/uL (1.5-5.0); LYMPH % 18.4 % (24.0-44.0); MEAN CORPUSCULAR HEMOGLOBIN 23.2 pg (27.0-33.0); MEAN CORPUSCULAR HGB CONC 29.2 g/dl (32.0-36.5); MEAN CORPUSCULAR VOLUME 79.6 fl (80.0-96.0); MONO # 2.1 10^3/uL (0.0-0.8); MONO % 12.4 % (2.0-8.0); NEUTROPHILS # 11.6 10^3/uL (1.5-8.5); NEUTROPHILS % 67.6 % (36.0-66.0); PLATELET COUNT, AUTOMATED 206 10^3/uL (150-450); RED BLOOD COUNT 4.65 10^6/uL (4.00-5.40); WHITE BLOOD COUNT 17.2 10^3/uL (4.0-10.0)
[2021-05-24 07:14] LABS: ALBUMIN 2.6 GM/DL (3.2-5.2); ALT/SGPT 47 U/L (12-78); BILIRUBIN,TOTAL 0.8 MG/DL (0.2-1.0); BLOOD UREA NITROGEN 24 MG/DL (7-18); CALCIUM LEVEL 8.6 MG/DL (8.8-10.2); CARBON DIOXIDE LEVEL 28 MEQ/L (21-32); CHLORIDE LEVEL 106 MEQ/L (98-107); CREATININE FOR GFR 0.83 MG/DL (0.55-1.30); GLOMERULAR FILTRATION RATE > 60.0 (>39); GLUCOSE, FASTING 148 MG/DL (70-100); POTASSIUM SERUM 4.6 MEQ/L (3.5-5.1); SODIUM LEVEL 142 MEQ/L (136-145); TOTAL PROTEIN 5.8 GM/DL (6.4-8.2)
[2021-05-24] MEDS: MIRALAX *UNIT DOSE* 17GM PACKET PO SCH (07:55)
[2021-05-24] MEDS: LOSARTAN 25 MG TAB PO SCH (07:56)
[2021-05-24] MEDS: OCUVITE 1 TAB PO SCH (07:57)
[2021-05-24] MEDS: GABAPENTIN 100 MG CAP PO SCH ×3 (07:57→20:35)
[2021-05-24] MEDS: guaiFENesin ER 600 MG TAB PO SCH ×2 (07:57→20:35)
[2021-05-24] MEDS: CALCIUM/VITAMIN D 500 MG TAB PO SCH (07:57)
[2021-05-24] MEDS: APIXABAN 5 MG TAB (ELIQUIS) PO SCH ×2 (07:58→20:36)
[2021-05-24] MEDS: POTASSIUM CHLORIDE 10MEQ SR TABLET PO SCH ×2 (07:58→20:36)
[2021-05-24] MEDS: MEMANTINE 5MG TABLET (NAMENDA) PO SCH ×2 (07:58→20:37)
[2021-05-24] MEDS: FUROSEMIDE 20 MG TAB PO SCH (07:58)
[2021-05-24] MEDS: predniSONE 20 MG TAB PO SCH (07:58)
[2021-05-24] MEDS ORDERED: VANCOMYCIN HCL 1,000 MG, VIAL MATE ADAPTER 1 EACH in NS 250 ML IV SCH (08:25)
[2021-05-24] MEDS ORDERED: SERTRALINE HCL 50 MG TAB PO SCH (09:00)
[2021-05-24 09:02] LABS: VITAMIN B12 LEVEL 901 PG/ML (247-911)
[2021-05-24 09:37] LABS: FOLATE 23.1 NG/ML (>5.4)
[2021-05-24] MEDS ORDERED: VANCOMYCIN HCL 1,000 MG, VIAL MATE ADAPTER 1 EACH in NS 250 ML IV ONE ×2 (10:00→11:00)
--- NOTE | 2021-05-24 10:20 | IPN ---
PROGRESS NOTE DATE: 05/24/2021 SUBJECTIVE: Patient's mentation has improved this morning. She is able to answer review of systems, no fever, chills, still complains of pain on her back, no nausea or vomiting. The patient has no Smart catheter in place. White count is still elevated at 17,000, MRSA detected. The patient was started on vancomycin this morning. OBJECTIVE: Vitals: Temperature 97.9, pulse 80, respiratory rate 18, blood pressure of 147/71, 92% on room air. General: Awake, alert and oriented to person and place, answering questions appropriately. No distress, no cyanosis. Lungs: Clear to auscultation, no wheezing or rales. Heart: S1, S2, sinus rhythm. Abdomen: Obese, soft, nontender. Smart in place. Extremities: No cyanosis, clubbing. Laboratory data, imaging study, microbiology have been reviewed. Please see the chart. ASSESSMENT AND PLAN: A 70-year-old female with chronic dementia, lives in [place], with chronic suprapubic catheter which was found to be malfunctioning with leukocytosis, admitted for a catheter associated urinary tract infection. She has history of neurogenic bladder, CHF, COPD, on home oxygen, two liters and bed-bound at baseline. IMPRESSION: 1. CAUTI. Catheter associated urinary tract infection secondary to malfunctioning suprapubic catheter, was on Augmentin, changed to IV ceftriaxone but urine culture is negative. White count was 28,000, down to 17,000 on IV ceftriaxone. MRSA screen is positive. She is on contact isolation, vancomycin started. Patient may be discharged on Levaquin as outpatient once white count is normal. Patient's urologist as outpatient followup. Continue with Smart at discharge. 2. Neurogenic bladder. Resume home medications. 3. Hypernatremia due to decreased oral intake, status post IV fluids, no signs of heart failure. 4. CHF, diastolic dysfunction. Compensated. 5. Acute delirium and chronic dementia due to UTI. Resolving. 6. Anemia thought to be hemodilutional but received RBC transfusion overnight, no signs of active bleeding. 7. COPD compensated on two liters of oxygen, bed bound, does not need a PT/OT evaluation, has 24/7 care at home. 8. Type 2 diabetes, insulin dependent on sliding scale. 9. Hypertension, uncontrolled. Wait until patient receives her morning medications and monitor subsequent blood pressure throughout the day. 10. History of left breast, ER positive breast cancer. 11. GILBERT on CPAP. 12. Depression. 13. Chronic osteoporosis, osteoarthritis, outpatient workup. 14. History of MRSA pneumonia. Monitor for symptoms. Still positive for MRSA on screen. Continue with isolation precautions. 15. History of COVID-19, asymptomatic currently. DISPOSITION: 1-2 days, possible discharge in the morning if white count is normal.
[2021-05-24] MEDS: cefTRIAXone SOD 1 GM in D5W MINI-BAG PLUS 50 ML IV SCH (13:33)
[2021-05-24] MEDS: LACTOBACILLUS ACIDOPHILUS CAP (BACID) PO SCH (18:01)
[2021-05-24] MEDS: ATORVASTATIN 20 MG TAB PO SCH (20:35)
[2021-05-24] MEDS: LETROZOLE 2.5 MG TAB PO SCH (20:36)
[2021-05-24] MEDS: DONEPEZIL 5 MG TAB PO SCH (20:36)
[2021-05-24] MEDS: SERTRALINE HCL 50 MG TAB PO SCH (20:37)
[2021-05-24] MEDS: VANCOMYCIN HCL 750 MG, VIAL MATE ADAPTER 1 EACH in NS 250 ML IV SCH (22:51)
[2021-05-25 01:13] VITALS: O2SAT 93
[2021-05-25 06:00] VITALS: BP 166/65
[2021-05-25 06:22] LABS: BASO % 0.1 % (0.0-1.0); EOS # 0.1 10^3/uL (0.0-0.5); EOS % 0.3 % (0.0-3.0); HEMOGLOBIN 10.9 g/dl (12.0-15.5); LYMPH # 2.1 10^3/uL (1.5-5.0); LYMPH % 12.4 % (24.0-44.0); MEAN CORPUSCULAR HGB CONC 29.5 g/dl (32.0-36.5); MEAN CORPUSCULAR VOLUME 78.2 fl (80.0-96.0); MONO % 9.9 % (2.0-8.0); NEUTROPHILS % 75.9 % (36.0-66.0); PLATELET COUNT, AUTOMATED 228 10^3/uL (150-450); RED BLOOD COUNT 4.73 10^6/uL (4.00-5.40); WHITE BLOOD COUNT 17.2 10^3/uL (4.0-10.0)
[2021-05-25 06:43] LABS: ALBUMIN 2.7 GM/DL (3.2-5.2); ALT/SGPT 49 U/L (12-78); BILIRUBIN,TOTAL 0.5 MG/DL (0.2-1.0); BLOOD UREA NITROGEN 22 MG/DL (7-18); CALCIUM LEVEL 8.8 MG/DL (8.8-10.2); CARBON DIOXIDE LEVEL 28 MEQ/L (21-32); CHLORIDE LEVEL 103 MEQ/L (98-107); CREATININE FOR GFR 0.74 MG/DL (0.55-1.30); GLOMERULAR FILTRATION RATE > 60.0 (>39); GLUCOSE, FASTING 200 MG/DL (70-100); POTASSIUM SERUM 3.9 MEQ/L (3.5-5.1); SODIUM LEVEL 137 MEQ/L (136-145); TOTAL PROTEIN 6.3 GM/DL (6.4-8.2)
[2021-05-25 07:11] LABS: MONO # 1.7 10^3/uL (0.0-0.8)
[2021-05-25] MEDS: FORMOTEROL FUMARATE 20 MCG/2 ML INHALATION SOLUTION (PERFOROMIST) INH SCH ×2 (07:50→20:07)
[2021-05-25] MEDS: MIRALAX *UNIT DOSE* 17GM PACKET PO SCH (08:31)
[2021-05-25] MEDS: HumaLOG INSULIN (NovoLOG) PER UNIT SC SCH ×4 (08:31→22:14)
[2021-05-25] MEDS: predniSONE 20 MG TAB PO SCH (08:35)
[2021-05-25] MEDS: MEMANTINE 5MG TABLET (NAMENDA) PO SCH ×2 (08:35→22:15)
[2021-05-25] MEDS: GABAPENTIN 100 MG CAP PO SCH ×3 (08:35→22:14)
[2021-05-25] MEDS: POTASSIUM CHLORIDE 10MEQ SR TABLET PO SCH ×2 (08:35→22:19)
[2021-05-25] MEDS: FUROSEMIDE 20 MG TAB PO SCH (08:35)
[2021-05-25] MEDS: guaiFENesin ER 600 MG TAB PO SCH ×2 (08:35→22:15)
[2021-05-25] MEDS: APIXABAN 5 MG TAB (ELIQUIS) PO SCH ×2 (08:35→22:19)
[2021-05-25] MEDS: OCUVITE 1 TAB PO SCH (08:35)
[2021-05-25] MEDS: LOSARTAN 25 MG TAB PO SCH (08:36)
[2021-05-25] MEDS: CALCIUM/VITAMIN D 500 MG TAB PO SCH (08:36)
[2021-05-25 09:50] LABS: ERYTHROCYTE SEDIMENTATION RATE 18 mm/hr (0-30)
[2021-05-25 10:05] LABS: C REACTIVE PROTEIN QUANTITATIV 0.54 MG/DL (0.00-0.30)
[2021-05-25] MEDS: VANCOMYCIN HCL 750 MG, VIAL MATE ADAPTER 1 EACH in NS 250 ML IV SCH ×2 (10:25→22:40)
--- NOTE | 2021-05-25 10:46 | IPN ---
PROGRESS NOTE DATE: 05/25/2021 SUBJECTIVE: Patient's says "I am going home today". She denies any fever, chills, dysuria, urgency, frequency. Smart catheter draining well. White count is still elevated at 16,000 despite Vanco and Ceftriaxone, MRSA positive. Urine culture finalized, no growth. OBJECTIVE: Vitals: Temperature 97.8, pulse 70, respiratory rate 20, blood [id number]/65, 90% on BiPAP. General: Awake, alert and oriented to herself, place, answering questions appropriately. No cyanosis, pallor, icterus, jaundice or respiratory distress. HEENT: No JVD, thyromegaly or cervical lymphadenopathy. Lungs: Clear to auscultation, no wheezing or rales or rhonchi. Heart: S1, S2, sinus rhythm. Abdomen: Obese, soft, nontender, non-distended. Smart catheter in place. Extremities: No cyanosis, clubbing. Laboratory data, imaging study, microbiology: Please see the chart. ASSESSMENT AND PLAN: A 70-year-old female with chronic dementia, lives in [place], with chronic suprapubic catheter which was malfunctioning, found to be septic with significant leukocytosis, admitted for a catheter-associated urinary tract infection. She has history of neurogenic bladder with chronic catheter, CHF, COPD, on 2 liters home oxygen and bed-bound, at baseline. IMPRESSION: 1. CAUTI. Catheter associated urinary tract infection due to malfunctioning suprapubic catheter. 2. Neurogenic bladder with malfunctioning suprapubic catheter. 3. Hypernatremia, resolved. 4. Hypokalemia, resolved. 5. CHF, diastolic dysfunction, compensated. 6. Acute delirium and chronic dementia due to UTI, resolved. 7. Hemodilutional anemia, received 1 unit RBC transfusion. 8. COPD on 2 liters of home. 9. Chronic hypoxic respiratory failure on 2 liters all the time. 10. Type 2 diabetes, insulin-dependent. 11. Hypertension. 12. History of left breast cancer, ER positive. 13. GILBERT on CPAP. 14. Depression. 15. Chronic osteoporosis. 16. History of MRSA pneumonia, MRSA positive on screen. PLAN: The patient received 1 unit RBC transfusion with resultant hemoglobin of 7.3, increasing to 10.9, has been stable with no signs of any GI bleeding, hematuria or signs of hemolysis. The patient has persistent leukocytosis despite broad spectrum antibiotics with notable shift. Await CRP, procalcitonin levels to review. She has no history of myeloproliferative disorder to suggest chronically elevated white count such as leukemic process. At this point the patient is broadly covered with improvement in white count from 20,000 to 17,000 today. She has had no diarrhea to suspect Clostridium infection. She is still not medically stable for discharge due to persistent leukocytosis. Catheter-associated urinary tract infection: Culture result is negative despite elevated white count. Continue with broad spectrum antibiotics for now; recheck UA, urine C&S. The patient will need urology follow up to do another cystostomy, Smart catheter to be taken home at discharge. The patient is continued on all her other home medications. Her COPD and CHF appear to be compensated. No changes in medications for now.
[2021-05-25 11:08] VITALS: O2SAT 90
[2021-05-25] MEDS: cefTRIAXone SOD 1 GM in D5W MINI-BAG PLUS 50 ML IV SCH (12:18)
[2021-05-25 14:00] VITALS: BP 168/74
[2021-05-25] MEDS: oxyCODONE 5MG TAB PO PRN (15:47)
[2021-05-25] MEDS: LACTOBACILLUS ACIDOPHILUS CAP (BACID) PO SCH (17:27)
[2021-05-25 20:00] VITALS: BP 141/66
[2021-05-25] MEDS: LETROZOLE 2.5 MG TAB PO SCH (22:18)
[2021-05-25] MEDS: DONEPEZIL 5 MG TAB PO SCH (22:19)
[2021-05-25] MEDS: SERTRALINE HCL 50 MG TAB PO SCH (22:19)
[2021-05-25] MEDS: ATORVASTATIN 20 MG TAB PO SCH (22:22)
[2021-05-25 23:00] VITALS: O2SAT 93
[2021-05-26 06:00] VITALS: BP 141/66
[2021-05-26 07:01] LABS: BASO % 0.1 % (0.0-1.0); EOS # 0.1 10^3/uL (0.0-0.5); EOS % 0.7 % (0.0-3.0); HEMATOCRIT 38.8 % (36.0-47.0); HEMOGLOBIN 11.3 g/dl (12.0-15.5); LYMPH # 3.8 10^3/uL (1.5-5.0); LYMPH % 20.2 % (24.0-44.0); MEAN CORPUSCULAR HEMOGLOBIN 23.3 pg (27.0-33.0); MEAN CORPUSCULAR HGB CONC 29.1 g/dl (32.0-36.5); MEAN CORPUSCULAR VOLUME 80.2 fl (80.0-96.0); NEUTROPHILS % 64.1 % (36.0-66.0); PLATELET COUNT, AUTOMATED 257 10^3/uL (150-450); RED BLOOD COUNT 4.84 10^6/uL (4.00-5.40); WHITE BLOOD COUNT 18.7 10^3/uL (4.0-10.0)
[2021-05-26] MEDS: FORMOTEROL FUMARATE 20 MCG/2 ML INHALATION SOLUTION (PERFOROMIST) INH SCH ×2 (07:12→18:02)
[2021-05-26 07:35] LABS: ALBUMIN 2.8 GM/DL (3.2-5.2); ALT/SGPT 43 U/L (12-78); BILIRUBIN,TOTAL 0.4 MG/DL (0.2-1.0); BLOOD UREA NITROGEN 25 MG/DL (7-18); CALCIUM LEVEL 9.6 MG/DL (8.8-10.2); CARBON DIOXIDE LEVEL 29 MEQ/L (21-32); CHLORIDE LEVEL 103 MEQ/L (98-107); CREATININE FOR GFR 0.91 MG/DL (0.55-1.30); GLOMERULAR FILTRATION RATE > 60.0 (>39); GLUCOSE, FASTING 159 MG/DL (70-100); POTASSIUM SERUM 3.9 MEQ/L (3.5-5.1); SODIUM LEVEL 139 MEQ/L (136-145); TOTAL PROTEIN 6.6 GM/DL (6.4-8.2)
[2021-05-26 08:19] LABS: MONO # 2.6 10^3/uL (0.0-0.8)
[2021-05-26] MEDS: HumaLOG INSULIN (NovoLOG) PER UNIT SC SCH ×4 (08:50→20:57)
[2021-05-26] MEDS: FUROSEMIDE 20 MG TAB PO SCH (08:51)
[2021-05-26] MEDS: CALCIUM/VITAMIN D 500 MG TAB PO SCH (08:51)
[2021-05-26] MEDS: POTASSIUM CHLORIDE 10MEQ SR TABLET PO SCH ×2 (08:51→20:55)
[2021-05-26] MEDS: GABAPENTIN 100 MG CAP PO SCH ×3 (08:51→20:54)
[2021-05-26] MEDS: APIXABAN 5 MG TAB (ELIQUIS) PO SCH ×2 (08:51→20:56)
[2021-05-26] MEDS: guaiFENesin ER 600 MG TAB PO SCH ×2 (08:51→20:56)
[2021-05-26] MEDS: OCUVITE 1 TAB PO SCH (08:51)
[2021-05-26] MEDS: MEMANTINE 5MG TABLET (NAMENDA) PO SCH ×2 (08:51→20:56)
[2021-05-26] MEDS: MIRALAX *UNIT DOSE* 17GM PACKET PO SCH (08:52)
[2021-05-26] MEDS: LOSARTAN 25 MG TAB PO SCH (08:52)
[2021-05-26] MEDS ORDERED: MEROPENEM INJ 500 MG in IV 1 EA IV SCH (09:20)
[2021-05-26 09:52] LABS: C REACTIVE PROTEIN QUANTITATIV < 0.30 MG/DL (0.00-0.30)
--- NOTE | 2021-05-26 10:03 | REP ---
INDICATION: wbc 18 sob cough COMPARISON: None TECHNIQUE: Axial noncontrast images from the thoracic inlet to the upper abdomen with coronal and sagittal reformations. This CT examination was performed using the following dose reduction techniques: Automated exposure control, adjustment of mA and/or kv according to the patient's size, and use of iterative reconstruction technique. FINDINGS: Chronic age-related interstitial changes are appreciated and evaluation is somewhat limited due to positioning and respiratory motion artifact. Inspissated material is identified within the right middle lobe and right lower lobe bronchi with postobstructive consolidation/atelectasis involving the right middle lobe and subtle early right lower lobe atelectasis. Mild reactive adenopathy is suspected. No effusion. No pneumothorax. Small noncalcified nodular density in the left lower lobe measuring approximately 6 mm (series 201; image 42) is identified. Further evaluation of the mediastinum demonstrates atherosclerotic changes to the thoracic aorta and coronary arteries. No cardiomegaly or obvious pericardial effusion. Osseous structures demonstrate age-related degenerative changes and multiple old healed rib fractures. IMPRESSION: 1. Inspissated material in the right middle lobe and right lower lobe bronchi causing patchy areas of consolidation to the right middle lobe and early atelectasis to the right lower lobe with volume loss and mild reactive adenopathy. 2. 6 mm noncalcified nodule in the left lower lobe. <Electronically signed by Hiro Pereira > 05/26/21 0034
[2021-05-26 10:06] LABS: ERYTHROCYTE SEDIMENTATION RATE 21 mm/hr (0-30)
[2021-05-26] MEDS: VANCOMYCIN HCL 1,000 MG, VIAL MATE ADAPTER 1 EACH in NS 250 ML IV SCH ×2 (10:51→20:58)
[2021-05-26] MEDS ORDERED: MEROPENEM INJ 1 GM in IV 1 EA IV SCH (11:00)
--- NOTE | 2021-05-26 11:48 | IPNPDOC ---
Date Seen The patient was seen on 05/26/21. Progress Note SUBJECTIVE: coughs when she eats. no fever/chills/chest pain/sob. no n/v/d/headache OBJECTIVE: PHYSICAL EXAMINATION Vitals: see below General: Awake, alert and oriented to herself, place, answering questions appropriately. No cyanosis, pallor, icterus, jaundice or respiratory distress. Irritated but cooperative HEENT: No JVD, thyromegaly or cervical lymphadenopathy. Lungs: clear b/l upper lobes. fine crepitations right base. Heart: S1, S2, sinus rhythm. Abdomen: Obese, soft, nontender, non-distended. Lino catheter in place. Extremities: No cyanosis, clubbing. Laboratory data, imaging study, microbiology: Please see the chart. ASSESSMENT AND PLAN: A 70-year-old female with chronic dementia, lives in [place], with chronic suprapubic catheter which was malfunctioning, found to be septic with significant leukocytosis, admitted for presumed catheter- associated urinary tract infection. She has history of neurogenic bladder with chronic catheter, CHF, COPD, on 2 liters home oxygen and bed-bound, at baseline. IMPRESSION: 1. Community acquired aspiration pneumoni rml/rll /MRSA POSITIVE on screen -on iv vanco. s/p augmentin s/p ceftriaxone. -ct chest: rml/rll consolidation-05/26 unasyn 3grams iv q6hrs -speech eval re: aspiration on thursday 2. Neurogenic bladder with malfunctioning suprapubic catheter. -outpt fu per urologist.will need cystostomy to be arranged as outpt -lino at discharge 3. Hypernatremia, resolved. 4. Hypokalemia, resolved. 5. CHF, diastolic dysfunction, compensated. 6. Acute delirium and chronic dementia, resolved 7. Hemodilutional anemia, received 1 unit RBC transfusion. 8. COPD on 2 liters of home. 9. Chronic hypoxic respiratory failure on 2 liters all the time. 10. Type 2 diabetes, insulin-dependent. 11. Hypertension, controlled 12. History of left breast cancer, ER positive. 13. GILBERT on CPAP. 14. Depression. 15. Chronic osteoporosis. 16. History of MRSA pneumonia, MRSA positive on screen. 17. Leukocytosis -initially thought to be secondary to CAUTI, but urine cx: no growth -ct chest : rml/rll pna. positive MRSA screen on iv vanco. unasyn for gram negative and anaerobic coverage until wbc trends down. then change to augmentin as oupt. will need swallow eval. VS, I&O, 24H, Fishbone Vital Signs/I&O Vital Signs Date Time Temp Pulse Resp B/P (MAP) Pulse Ox O2 Delivery O2 Flow Rate FiO2 05/26/21 08:52 122/53 05/26/21 06:00 98.0 80 20 92 Room Air 05/23/21 14:00 2.0 I&O- Last 24 Hours up to 6 AM 05/26/21 06:00 Intake Total 1355 ml Output Total 2450 ml Balance -1095 ml Laboratory Data 24H LABS Laboratory Tests 2 05/25/21 16:37: Bedside Glucose (Misc Panel) 355H 05/25/21 20:44: Bedside Glucose (Misc Panel) 268H 05/25/21 21:06: Vancomycin Level Trough 11.4 05/26/21 06:32: Immature Granulocyte % (Auto) 0.9, Neutrophils (%) (Auto) 64.1, Lymphocytes (%) (Auto) 20.2L, Monocytes (%) (Auto) 14.0H, Eosinophils (%) (Auto) 0.7, Basophils (%) (Auto) 0.1, Neutrophils # (Auto) 12.0H, Lymphocytes # (Auto) 3.8, Monocytes # (Auto) 2.6H, Eosinophils # (Auto) 0.1, Basophils # (Auto) 0.0, Nucleated Red Blood Cells % (auto) 0.0, Erythrocyte Sedimentation Rate 21, Anion Gap 7L, Gl omerular Filtration Rate > 60.0, Calcium Level 9.6, Total Bilirubin 0.4, Aspartate Amino Transf (AST/SGOT) 11, Alanine Aminotransferase (ALT/SGPT) 43, Alkaline Phosphatase 80, C-Reactive Protein, Quantitative < 0.30, Total Protein 6.6, Albumin 2.8L, Albumin/Globulin Ratio 0.7L CBC/BMP Laboratory Tests 05/26/21 06:32 Microbiology Microbiology 05/25/21 Stool Occult Blood (MARCUS) - Final, Complete 05/25/21 Urine Culture - Final, Complete 05/23/21 Blood Culture - Preliminary, Resulted No Growth after 72 hours. All specime... 05/23/21 Blood Culture - Preliminary, Resulted No Growth after 72 hours. All specime... 05/22/21 Urine Culture - Final, Complete JOVANNY GREENE MD May 26, 2021 11:48
[2021-05-26] MEDS: AMPICILLIN SOD/SULBACTAM SOD 3 GM in D5W MINI-BAG PLUS 100 ML IV SCH ×2 (12:52→17:17)
[2021-05-26 14:00] VITALS: BP 149/71
[2021-05-26 14:34] VITALS: O2SAT 90
[2021-05-26] MEDS: LACTOBACILLUS ACIDOPHILUS CAP (BACID) PO SCH (17:17)
[2021-05-26] MEDS: ATORVASTATIN 20 MG TAB PO SCH (20:54)
[2021-05-26] MEDS: SERTRALINE HCL 50 MG TAB PO SCH (20:55)
[2021-05-26] MEDS: DONEPEZIL 5 MG TAB PO SCH (20:55)
[2021-05-26] MEDS: LETROZOLE 2.5 MG TAB PO SCH (20:57)
[2021-05-26 21:00] VITALS: BP 124/55
[2021-05-27] MEDS: AMPICILLIN SOD/SULBACTAM SOD 3 GM in D5W MINI-BAG PLUS 100 ML IV SCH ×4 (00:27→17:08)
[2021-05-27 06:12] LABS: BASO % 0.1 % (0.0-1.0); EOS # 0.2 10^3/uL (0.0-0.5); EOS % 1.1 % (0.0-3.0); HEMATOCRIT 35.2 % (36.0-47.0); HEMOGLOBIN 10.3 g/dl (12.0-15.5); LYMPH # 3.4 10^3/uL (1.5-5.0); LYMPH % 18.3 % (24.0-44.0); MEAN CORPUSCULAR HEMOGLOBIN 23.6 pg (27.0-33.0); MEAN CORPUSCULAR HGB CONC 29.3 g/dl (32.0-36.5); MEAN CORPUSCULAR VOLUME 80.5 fl (80.0-96.0); MONO # 2.6 10^3/uL (0.0-0.8); MONO % 14.1 % (2.0-8.0); NEUTROPHILS # 12.1 10^3/uL (1.5-8.5); NEUTROPHILS % 65.2 % (36.0-66.0); PLATELET COUNT, AUTOMATED 237 10^3/uL (150-450); RED BLOOD COUNT 4.37 10^6/uL (4.00-5.40); WHITE BLOOD COUNT 18.6 10^3/uL (4.0-10.0)
[2021-05-27 06:46] LABS: ALBUMIN 2.7 GM/DL (3.2-5.2); ALT/SGPT 45 U/L (12-78); BILIRUBIN,TOTAL 0.4 MG/DL (0.2-1.0); BLOOD UREA NITROGEN 27 MG/DL (7-18); CALCIUM LEVEL 8.9 MG/DL (8.8-10.2); CARBON DIOXIDE LEVEL 28 MEQ/L (21-32); CHLORIDE LEVEL 105 MEQ/L (98-107); CREATININE FOR GFR 0.97 MG/DL (0.55-1.30); GLOMERULAR FILTRATION RATE > 60.0 (>39); GLUCOSE, FASTING 156 MG/DL (70-100); POTASSIUM SERUM 4.3 MEQ/L (3.5-5.1); SODIUM LEVEL 140 MEQ/L (136-145); TOTAL PROTEIN 5.5 GM/DL (6.4-8.2)
[2021-05-27] MEDS: ALENDRONATE 35MG TABLET PO SCH (06:53)
[2021-05-27] MEDS: FORMOTEROL FUMARATE 20 MCG/2 ML INHALATION SOLUTION (PERFOROMIST) INH SCH ×2 (07:10→19:34)
[2021-05-27 09:50] LABS: C REACTIVE PROTEIN QUANTITATIV 0.46 MG/DL (0.00-0.30)
[2021-05-27 10:00] LABS: ERYTHROCYTE SEDIMENTATION RATE 21 mm/hr (0-30)
[2021-05-27] MEDS: POTASSIUM CHLORIDE 10MEQ SR TABLET PO SCH ×2 (10:07→20:05)
[2021-05-27] MEDS: CALCIUM/VITAMIN D 500 MG TAB PO SCH (10:07)
[2021-05-27] MEDS: HumaLOG INSULIN (NovoLOG) PER UNIT SC SCH ×4 (10:07→20:55)
[2021-05-27] MEDS: GABAPENTIN 100 MG CAP PO SCH ×3 (10:08→20:07)
[2021-05-27] MEDS: MEMANTINE 5MG TABLET (NAMENDA) PO SCH ×2 (10:08→20:05)
[2021-05-27] MEDS: guaiFENesin ER 600 MG TAB PO SCH ×2 (10:08→20:04)
[2021-05-27] MEDS: FUROSEMIDE 20 MG TAB PO SCH (10:08)
[2021-05-27] MEDS: APIXABAN 5 MG TAB (ELIQUIS) PO SCH ×2 (10:08→20:05)
[2021-05-27] MEDS: MIRALAX *UNIT DOSE* 17GM PACKET PO SCH (10:09)
[2021-05-27] MEDS: OCUVITE 1 TAB PO SCH (10:10)
[2021-05-27] MEDS: LOSARTAN 25 MG TAB PO SCH (10:11)
[2021-05-27] MEDS ORDERED: VANCOMYCIN HCL 750 MG, VIAL MATE ADAPTER 1 EACH in NS 250 ML IV SCH (11:00)
[2021-05-27] MEDS: MAALOX 30 ML SUSP *UDC PO PRN (15:23)
[2021-05-27] MEDS: LACTOBACILLUS ACIDOPHILUS CAP (BACID) PO SCH (17:09)
--- NOTE | 2021-05-27 19:48 | IPNPDOC ---
Date Seen The patient was seen on 05/27/21. Progress Note SUBJECTIVE: Persistent leukocytosis despite IV Vanco and Zosyn. Coughs when she eats concerning for aspiration. New finding of right middle and lower lobe pneumonia Afebrile. Denies nausea vomiting dysuria urgency frequency. OBJECTIVE: PHYSICAL EXAMINATION Vitals: see below General: No distress cooperative pleasant HEENT: No JVD, thyromegaly or cervical lymphadenopathy. Moist mucous membranes Lungs: clear b/l upper lobes. fine crepitations right base. Kyphotic Heart: S1, S2, sinus rhythm. Abdomen: Obese, soft, nontender, non-distended. Lino catheter in place. Extremities: No cyanosis, clubbing. Laboratory data, imaging study, microbiology: Please see the chart. ASSESSMENT AND PLAN: A 70-year-old female with chronic dementia, lives in [place], with chronic suprapubic catheter which was malfunctioning, found to be septic with significant leukocytosis, admitted for presumed catheter- associated urinary tract infection. She has history of neurogenic bladder with chronic catheter, CHF, COPD, on 2 liters home oxygen and bed-bound, at baseline. IMPRESSION: 1. Community acquired aspiration pneumoni rml/rll /MRSA POSITIVE on screen -on iv vanco. s/p augmentin s/p ceftriaxone. -ct chest: rml/rll consolidation-05/26 unasyn 3grams iv q6hrs -Await speech eval recommendations -ID consulted due to persistent leukocytosis. Await ID recommendations 2. Neurogenic bladder with malfunctioning suprapubic catheter. -outpt fu per urologist.will need cystostomy to be arranged as outpt -lino at discharge 3. Hypernatremia, resolved. 4. Hypokalemia, resolved. 5. CHF, diastolic dysfunction, compensated. 6. Acute delirium and chronic dementia, resolved 7. Hemodilutional anemia, received 1 unit RBC transfusion. 8. COPD on 2 liters of home. 9. Chronic hypoxic respiratory failure on 2 liters all the time. 10. Type 2 diabetes, insulin-dependent. 11. Hypertension, controlled 12. History of left breast cancer, ER positive. 13. GILBERT on CPAP. 14. Depression. 15. Chronic osteoporosis. 16. History of MRSA pneumonia, MRSA positive on screen. 17. Leukocytosis -initially thought to be secondary to CAUTI, but urine cx: no growth -ct chest : rml/rll pna. positive MRSA screen on iv vanco. unasyn for gram negative and anaerobic coverage. Disposition: Awaiting speech and ID recommendations. Discharge home on oral antibiotics if okay with infectious disease. VS, I&O, 24H, Fishbone Vital Signs/I&O Vital Signs Date Time Temp Pulse Resp B/P (MAP) Pulse Ox O2 Delivery O2 Flow Rate FiO2 05/27/21 10:11 134/74 05/27/21 06:00 97.9 72 17 91 NIPPV (BIPAP/CPAP) 05/23/21 14:00 2.0 I&O- Last 24 Hours up to 6 AM 05/27/21 06:00 Intake Total 990 ml Output Total 1675 ml Balance -685 ml Laboratory Data 24H LABS Laboratory Tests 2 05/27/21 05:56: Immature Granulocyte % (Auto) 1.2, Neutrophils (%) (Auto) 65.2, Lymphocytes (%) (Auto) 18.3L, Monocytes (%) (Auto) 14.1H, Eosinophils (%) (Auto) 1.1, Basophils (%) (Auto) 0.1, Neutrophils # (Auto) 12.1H, Lymphocytes # (Auto) 3.4, Monocytes # (Auto) 2.6H, Eosinophils # (Auto) 0.2, Basophils # (Auto) 0.0, Nucleated Red Blood Cells % (auto) 0.0, Erythrocyte Sedimentation Rate 21, Anion Gap 7L, Glomerular Filtration Rate > 60.0, Calcium Level 8.9, Total Bilirubin 0.4, Aspartate Amino Transf (AST/SGOT) 14, Alanine Aminotransferase (ALT/SGPT) 45, Alkaline Phosphatase 77, C-Reactive Protein, Quantitative 0.46H, Total Protein 5.5L, Albumin 2.7L, Albumin/Globulin Ratio 1.0L 05/27/21 06:07: Procalcitonin 0.15 05/27/21 09:17: Vancomycin Level Trough 18.3 05/27/21 11:51: Bedside Glucose (Misc Panel) 220H 05/27/21 16:52: Bedside Glucose (Misc Panel) 160H CBC/BMP Laboratory Tests 05/27/21 05:56 Microbiology Microbiology 05/25/21 Stool Occult Blood (MARCUS) - Final, Complete 05/25/21 Urine Culture - Final, Complete 05/23/21 Blood Culture - Preliminary, Resulted No Growth after 72 hours. All specime... 05/23/21 Blood Culture - Preliminary, Resulted No Growth after 72 hours. All specime... 05/22/21 Urine Culture - Final, Complete JOVANNY GREENE MD May 27, 2021 19:48
[2021-05-27] MEDS: ATORVASTATIN 20 MG TAB PO SCH (20:05)
[2021-05-27] MEDS: LETROZOLE 2.5 MG TAB PO SCH (20:05)
[2021-05-27] MEDS: DONEPEZIL 5 MG TAB PO SCH (20:05)
[2021-05-27] MEDS: oxyCODONE 5MG TAB PO PRN (20:07)
[2021-05-27] MEDS: SERTRALINE HCL 50 MG TAB PO SCH (20:07)
[2021-05-27 20:17] VITALS: BP 104/69
[2021-05-27 22:37] VITALS: O2SAT 95
--- NOTE | 2021-05-28 05:57 | CR ---
CONSULTATION DATE: 05/27/2021 REASON FOR CONSULTATION: I was asked to consult by Dr. Eden for evaluation of pneumonia and persistent leukocytosis. HISTORY OF PRESENT ILLNESS: Rubia is a 70-year-old morbidly obese female, nonambulatory, who was brought in by her daughter because the patient's daughter reported she could not take care of her any longer at home. Her suprapubic catheter was also not functioning well and therefore that was removed in the emergency room and a Smart catheter was placed after evaluation by urology. The patient did not have any acute symptoms. She says she has a chronic cough. She wears oxygen at 2 liters. She states she feels much better and wants to go home. She states she missed Thanksgiving and would like to go home to her daughter and also where her granddaughters live and a nurse is going to take care of her. Her daughter is Angelica Reddy, telephone number [phone]. REVIEW OF SYSTEMS: She states she has a chronic cough and mild shortness of breath, but she is unstable on 2 liters nasal cannula. No chest pain. No nausea or vomiting or diarrhea, no abdominal pain. The patient states she does not walk. PAST MEDICAL HISTORY: 1. Type 2 diabetes, insulin dependent, 2. Hypertension. 3. Left breast cancer. 4. Obstructive sleep apnea (GILBERT) on sleep CPAP. 5. Chronic obstructive pulmonary disease (COPD). 6. Adrenal adenopathy. 7. Constipation. 8. Obesity. 9. Depression. 10.Recurrent falls. 11.Immobility. She is Lauren lifted and wheelchair dependent. 12.Dyslipidemia. 13.Lumbar radiculopathy with spondylosis. 14.Chronic neck pain. 15.Osteoarthritis. 16.Alzheimer's disease. 17.Congestive heart failure. 18.Pulmonary embolism 19.History of methicillin-resistant Staphylococcus aureus (MRSA) pneumonia. 20.Chronic seasonal allergies. 21.Chronic urinary tract infections (UTIs) from catheter. 22.History of COVID 19. The patient states was vaccinated in 2019 and does not want to get COVID in the hospital and wants to go home. 23.Aspiration risk. PAST SURGICAL HISTORY: Open cystectomy with cystostomy with suprapubic catheter placement in 2019. SOCIAL HISTORY: She lives with her daughter. She smoked in the past. She denies alcohol or drug use. ALLERGIES: SULFA, HEPARIN, LATEX. MEDICATIONS: Vancomycin 750 mg IV q 12 hours, Unasyn 3 gm IV q 6 hours, insulin sliding scale, Femara 2.5 mg by mouth every night at bedtime, Aricept 10 mg by mouth every night at bedtime, Cardizem 240 mg every night at bedtime, Lipitor 20 mg every night at bedtime, probiotics one tablet by mouth daily, losartan 25 mg by mouth daily, multivitamins one tablet daily, polyethylene glycol one packet daily, calcium with vitamin D 500 mg by mouth daily, Namenda 10 mg by mouth twice a day, guaifenesin 1200 mg by mouth twice a day, gabapentin 100 mg by mouth three times a day, furosemide 20 mg by mouth daily, Eliquis 5 mg by mouth twice a day, Performist 20 mcg inhaled twice a day, Nystatin twice a day, oxycodone as needed. LABORATORY DATA: White count was 20.4 on admission and currently 18.6, hemoglobin 10.3, hematocrit 35.2, platelets 237, 65% neutrophils, 18% lymphocytes, 14% monocytes. Erythrocyte sedimentation rate (ESR) range between 18 and 21. Sodium 140, potassium 4.3, chloride 105, bicarbonate 28, BUN 27, creatinine is 0.97, glucose 156, calcium 8.9, bilirubin 0.4, AST 14, ALT 45, alkaline phosphatase 77, C-reactive protein range between 0.3 to 0.54, albumin 2.7. Procalcitonin 0.09 to 0.15. Blood cultures two sets on 05/23 were negative after 72 hours. Urine culture was negative. Stool Hemoccult was positive. Methicillin-resistant Staphylococcus aureus (MRSA) screen was done on 05/23 was positive, SARS, COVID 2, influenza A and B all were negative. Vancomycin trough was 18.3. IMAGING STUDY: Chest CT done on 05/26 shows inspissated secretions in the bronchi in the right middle lobe and right lower lobe. Bronchi causing patchy consolidation of the right middle lobe with some atelectasis. 6 mm nodule in the left lower lobe noncalcified. Chest x-ray done on 05/22 shows no focal infiltrates. CT abdomen and pelvis on 05/22 showing left kidney with a hyperdense cyst. Adrenal lesion greater than 1 cm, but less than 4 cm. Reported as benign. Correlation with ultrasound or MRI of the kidney was recommended for the 3 mm renal cyst. Liver normal. Gallbladder normal. Pancreas normal. Spleen normal. PHYSICAL EXAMINATION: She is an elderly female in no acute distress. Temperature is 97.9, pulse 72, respirations 17, O2 saturation 91% on 2 liters nasal cannula. Heart: Normal S1, S2. No murmurs appreciated. Lungs: Diminished breath sounds bilaterally, but a few expiratory wheezes. No rhonchi. Abdomen: Morbidly obese, soft and nontender. Suprapubic catheter was removed. There is an open cystoscopy with leaking urine. There is a Smart catheter in place with clear urine. Extremities: No clubbing, cyanosis. Trace edema. Upper extremity shows a tattoo on the right arm. Left forearm has an IV with slight erythema and tenderness. IMPRESSION: This is a 70-year-old morbidly obese female brought in for placement issues and was found to have an obstructive suprapubic catheter, which was removed and a Smart catheter was placed. She had leukocytosis and therefore a chest CT was obtained, which showed inspissated secretions and some right middle lobe and lower lobe consolidation and early infiltrate. The fact that she had a white count, she was treated with Unasyn and based on the fact that she was methicillin-resistant Staphylococcus aureus (MRSA) screen positive, they added vancomycin. Her C-reactive protein is close to normal. Her procalcitonin is normal. Her oxygenation is at baseline at 2 liters nasal canula. The patient does not seem to have pneumonia clinically without any worsening pulmonary symptoms. Her leukocytosis may be chronic, should obtain records from her primary care provider, as there are no records available to us. The other concern that could explain her leukocytosis could be related to her renal cyst. There is a cyst that is hyperdense, whether this is infected or not or malignancy, we should obtain follow up ultrasound or MRI as recommended by radiology. PLAN: Please discontinue IV vancomycin and Unasyn. Switch to Augmentin 875 mg by mouth twice a day for five days. Obtain previous records from her primary care physician as an outpatient to see if this has been a chronic issue. Obtain follow up imaging on her kidney with MRI or ultrasound.
[2021-05-28 06:00] VITALS: BP 121/71
[2021-05-28 07:13] LABS: BASO % 0.1 % (0.0-1.0); EOS # 0.2 10^3/uL (0.0-0.5); EOS % 1.1 % (0.0-3.0); HEMATOCRIT 34.1 % (36.0-47.0); HEMOGLOBIN 9.8 g/dl (12.0-15.5); LYMPH % 16.9 % (24.0-44.0); MEAN CORPUSCULAR HEMOGLOBIN 23.5 pg (27.0-33.0); MEAN CORPUSCULAR HGB CONC 28.7 g/dl (32.0-36.5); MEAN CORPUSCULAR VOLUME 81.8 fl (80.0-96.0); MONO # 2.2 10^3/uL (0.0-0.8); MONO % 12.4 % (2.0-8.0); NEUTROPHILS # 12.2 10^3/uL (1.5-8.5); NEUTROPHILS % 68.9 % (36.0-66.0); PLATELET COUNT, AUTOMATED 216 10^3/uL (150-450); RED BLOOD COUNT 4.17 10^6/uL (4.00-5.40); WHITE BLOOD COUNT 17.7 10^3/uL (4.0-10.0)
[2021-05-28] MEDS: FORMOTEROL FUMARATE 20 MCG/2 ML INHALATION SOLUTION (PERFOROMIST) INH SCH ×2 (07:17→20:00)
[2021-05-28 07:30] VITALS: BP 127/71
[2021-05-28] MEDS: MIRALAX *UNIT DOSE* 17GM PACKET PO SCH (08:37)
[2021-05-28] MEDS: GABAPENTIN 100 MG CAP PO SCH ×3 (08:53→21:09)
[2021-05-28] MEDS: HumaLOG INSULIN (NovoLOG) PER UNIT SC SCH ×4 (08:53→21:11)
[2021-05-28] MEDS: AUGMENTIN 875 MG TAB PO SCH ×2 (08:53→21:09)
[2021-05-28] MEDS: POTASSIUM CHLORIDE 10MEQ SR TABLET PO SCH ×2 (08:54→21:10)
[2021-05-28] MEDS: OCUVITE 1 TAB PO SCH (08:54)
[2021-05-28] MEDS: LOSARTAN 25 MG TAB PO SCH (08:54)
[2021-05-28] MEDS: MEMANTINE 5MG TABLET (NAMENDA) PO SCH ×2 (08:55→21:09)
[2021-05-28] MEDS: guaiFENesin ER 600 MG TAB PO SCH ×2 (08:55→21:09)
[2021-05-28] MEDS: CALCIUM/VITAMIN D 500 MG TAB PO SCH (08:55)
[2021-05-28] MEDS: FUROSEMIDE 20 MG TAB PO SCH (09:15)
[2021-05-28] MEDS: MAALOX 30 ML SUSP *UDC PO PRN (09:15)
[2021-05-28] MEDS: APIXABAN 5 MG TAB (ELIQUIS) PO SCH ×2 (09:15→21:10)
--- NOTE | 2021-05-28 11:14 | REP ---
INDICATION: CAUTI, persistent leukocytosis COMPARISON: None TECHNIQUE: Real time ingram scale ultrasound examination using curved array transducer. FINDINGS: Patient is status post right nephrectomy. Left kidney measures 13.2 x 4.2 x 6.2 cm and includes multiple cysts measuring up to 4.4 cm including complex cyst in the upper pole measuring 2.5 cm. Mild hydronephrosis. No nephrolithiasis. Smart catheter is identified within the bladder and mild bladder wall thickening cannot be excluded. IMPRESSION: 1. Simple and complex cystic changes to the left kidney. Associated mild left hydronephrosis. <Electronically signed by Hiro Pereira > 05/28/21 1111
[2021-05-28 13:48] VITALS: BP 121/62
[2021-05-28] MEDS: LACTOBACILLUS ACIDOPHILUS CAP (BACID) PO SCH (17:25)
--- NOTE | 2021-05-28 19:29 | IPN ---
INFECTIOUS DISEASE PROGRESS NOTE DATE: 05/28/2021 SUBJECTIVE: Rubia seems to be doing well. She is not wearing her oxygen today. Her O2 sats are between 93 and 94% when she is sitting up. She had some mild cough. She was not able to produce any sputum. She denies any shortness of breath. No fever or chills. No nausea, vomiting or diarrhea. OBJECTIVE: PHYSICAL EXAMINATION: VITAL SIGNS: Temperature is 98.9, pulse 98, respirations 18, blood pressure 121/62. HEART: Normal S1, S2. No murmurs. LUNGS: Diminished breath sounds at the bases. ABDOMEN: Morbidly obese, soft, nontender. Suprapubic catheter was removed. There is urine leaking from the open cystostomy. Smart catheter in place. EXTREMITIES: Trace edema. Very weak in the lower extremities. The patient states she is non ambulatory. LABORATORY STUDIES: White count 17.7, hemoglobin 9.8, hematocrit 43.1, platelet count 216, 69% neutrophils, 17% lymphocytes, 12% monocytes. ESR 21, sodium 140, potassium 4.3, chloride 105, bicarbonate 28, procalcitonin 0.15. MRSA screen is positive. IMPRESSION: 1. Leukocytosis with a chest CT finding of pneumonia although reviewed data chest CT with Pulmonary. They feel this is chronic with atelectasis and some probably inspissated secretions. With the fact that the patient's procalcitonin and sed rate and CRP are within normal limits, I recommended treating for a 10-day course with currently on Omentum, day number one for a total of five days. Previously the patient had been on Vancomycin and Ampicillin. 2. Leukocytosis please obtain previous labs from primary care provider office. The patient is not able to tell me who she sees, but I have asked the charge nurse to get previous CBCs from the past. Also obtain peripheral smear. 3. Suprapubic catheter dysfunction - The patient has a chronic Smart catheter at this time. 4. MRSA carrier but no evidence of MRSA pneumonia. PLAN: Continue Augmentin for a total of 5 days. End of therapy 06/01.
--- NOTE | 2021-05-28 20:45 | IPNPDOC ---
Date Seen The patient was seen on 05/28/21. Progress Note SUBJECTIVE: No acute events overnight. Persistent leukocytosis, peripheral smear unremarkable. Office notes from PCP requested. Denies chest pain, n/v/d, shortness of breath. OBJECTIVE: PHYSICAL EXAMINATION Vitals: see below General: No distress cooperative pleasant HEENT: No JVD, thyromegaly or cervical lymphadenopathy. Moist mucous membranes Lungs: clear b/l upper lobes. fine crepitations right base. Kyphotic Heart: S1, S2, sinus rhythm. Abdomen: Obese, soft, nontender, non-distended. Smart catheter in place. : suprapubic catheter in place Extremities: No cyanosis, clubbing. Laboratory data, imaging study, microbiology: Please see the chart. ASSESSMENT AND PLAN: A 70-year-old female with chronic dementia, lives in [place], with chronic suprapubic catheter which was malfunctioning, found to be septic with significant leukocytosis, admitted for presumed catheter-ass ociated urinary tract infection. She has history of neurogenic bladder with chronic catheter, CHF, COPD, on 2 liters home oxygen and bed-bound, at baseline. IMPRESSION: Persistent leukocytosis, r/o 2/2 to ? community acquired aspiration pneumonia RML/RLL vs. other etiology MRSA POSITIVE Neurogenic bladder with malfunctioning suprapubic catheter. Hypernatremia, resolved. Hypokalemia, resolved. CHF, diastolic dysfunction, compensated. Acute delirium and chronic dementia, resolved Hemodilutional anemia, received 1 unit RBC transfusion. COPD on 2 liters of home. Chronic hypoxic respiratory failure on 2 liters all the time. Type 2 diabetes, insulin-dependent. Hypertension, controlled History of left breast cancer, ER positive. GILBERT on CPAP. Depression. Chronic osteoporosis. History of MRSA pneumonia Currently awaiting PCP notes, last labs to see if patient has chronic leukocytosis. Per ID, c/w PO augmentin until 06/01/21. Leukocytosis with a chest CT finding of pneumonia although reviewed data chest CT with Pulmonary. They feel this is chronic with atelectasis. Procalcitonin and sed rate and CRP are within normal limits. She will need f/u with urology as o/p. MRSA carrier but no evidence of MRSA pneumonia per ID DISPOSITION: Plan is home at discharge. . VS, I&O, 24H, Fishbone Vital Signs/I&O Vital Signs Date Time Temp Pulse Resp B/P (MAP) Pulse Ox O2 Delivery O2 Flow Rate FiO2 05/28/21 13:48 98.9 98 18 121/62 (81) 91 Room Air 05/27/21 20:17 2.0 I&O- Last 24 Hours up to 6 AM 05/28/21 05:59 Intake Total 2165 ml Output Total 1275 ml Balance 890 ml Laboratory Data 24H LABS Laboratory Tests 2 05/28/21 05:56: Immature Granulocyte % (Auto) 0.6, Neutrophils (%) (Auto) 68.9H, Lymphocytes (%) (Auto) 16.9L, Monocytes (%) (Auto) 12.4H, Eosinophils (%) (Auto) 1.1, Basophils (%) (Auto) 0.1, Neutrophils # (Auto) 12.2H, Lymphocytes # (Auto) 3.0, Monocytes # (Auto) 2.2H, Eosinophils # (Auto) 0.2, Basophils # (Auto) 0.0, Nucleated Red Blood Cells % (auto) 0.0 05/28/21 07:34: Bedside Glucose (Misc Panel) 159H 05/28/21 11:36: Bedside Glucose (Misc Panel) 229H 05/28/21 17:21: Bedside Glucose (Misc Panel) 231H 05/28/21 18:24: Differential Slide Review Report, Peripheral Blood Smear Path Consult PERIPHERAL SMEAR CBC/BMP Laboratory Tests 05/28/21 05:56 Microbiology Microbiology 05/25/21 Stool Occult Blood (MARCUS) - Final, Complete 05/25/21 Urine Culture - Final, Complete 05/23/21 Blood Culture - Final, Complete NO GROWTH AFTER 5 DAYS 05/23/21 Blood Culture - Final, Complete NO GROWTH AFTER 5 DAYS 05/22/21 Urine Culture - Final, Complete Aby Nicole MD May 28, 2021 20:45
[2021-05-28] MEDS: LETROZOLE 2.5 MG TAB PO SCH (21:09)
[2021-05-28] MEDS: ATORVASTATIN 20 MG TAB PO SCH (21:09)
[2021-05-28] MEDS: SERTRALINE HCL 50 MG TAB PO SCH (21:10)
[2021-05-28] MEDS: DONEPEZIL 5 MG TAB PO SCH (21:10)
[2021-05-28] MEDS: oxyCODONE 5MG TAB PO PRN (21:11)
[2021-05-28 22:00] VITALS: BP 122/62
[2021-05-29 01:51] VITALS: O2SAT 93
[2021-05-29 06:00] VITALS: BP 118/63
[2021-05-29 06:43] LABS: HEMATOCRIT 33.9 % (36.0-47.0); HEMOGLOBIN 9.7 g/dl (12.0-15.5); MEAN CORPUSCULAR HEMOGLOBIN 23.3 pg (27.0-33.0); MEAN CORPUSCULAR HGB CONC 28.6 g/dl (32.0-36.5); MEAN CORPUSCULAR VOLUME 81.5 fl (80.0-96.0); PLATELET COUNT, AUTOMATED 176 10^3/uL (150-450); RED BLOOD COUNT 4.16 10^6/uL (4.00-5.40); WHITE BLOOD COUNT 13.9 10^3/uL (4.0-10.0)
[2021-05-29 07:06] LABS: ALBUMIN 2.4 GM/DL (3.2-5.2); ALT/SGPT 35 U/L (12-78); BILIRUBIN,TOTAL 0.3 MG/DL (0.2-1.0); BLOOD UREA NITROGEN 21 MG/DL (7-18); CALCIUM LEVEL 8.9 MG/DL (8.8-10.2); CARBON DIOXIDE LEVEL 28 MEQ/L (21-32); CHLORIDE LEVEL 108 MEQ/L (98-107); CREATININE FOR GFR 0.87 MG/DL (0.55-1.30); GLOMERULAR FILTRATION RATE > 60.0 (>39); GLUCOSE, FASTING 177 MG/DL (70-100); SODIUM LEVEL 142 MEQ/L (136-145); TOTAL PROTEIN 5.8 GM/DL (6.4-8.2)
[2021-05-29] MEDS: FORMOTEROL FUMARATE 20 MCG/2 ML INHALATION SOLUTION (PERFOROMIST) INH SCH ×2 (07:21→20:10)
[2021-05-29 08:00] VITALS: BP 118/62
[2021-05-29] MEDS: HumaLOG INSULIN (NovoLOG) PER UNIT SC SCH ×4 (08:18→21:08)
[2021-05-29] MEDS: LOSARTAN 25 MG TAB PO SCH (08:19)
[2021-05-29] MEDS: MIRALAX *UNIT DOSE* 17GM PACKET PO SCH (08:19)
[2021-05-29] MEDS: OCUVITE 1 TAB PO SCH (08:20)
[2021-05-29] MEDS: AUGMENTIN 875 MG TAB PO SCH ×2 (08:20→20:54)
[2021-05-29] MEDS: FUROSEMIDE 20 MG TAB PO SCH (08:21)
[2021-05-29] MEDS: guaiFENesin ER 600 MG TAB PO SCH ×2 (08:21→20:54)
[2021-05-29] MEDS: GABAPENTIN 100 MG CAP PO SCH ×3 (08:21→20:54)
[2021-05-29] MEDS: POTASSIUM CHLORIDE 10MEQ SR TABLET PO SCH ×2 (08:22→21:02)
[2021-05-29] MEDS: APIXABAN 5 MG TAB (ELIQUIS) PO SCH ×2 (08:22→20:54)
[2021-05-29] MEDS: CALCIUM/VITAMIN D 500 MG TAB PO SCH (08:22)
[2021-05-29] MEDS: MEMANTINE 5MG TABLET (NAMENDA) PO SCH ×2 (08:22→21:02)
[2021-05-29] MEDS: LEVEMIR (INSULIN DETEMIR) 1 UNITS/0.01ML SC SCH (11:06)
[2021-05-29] MEDS ORDERED: VARIBAR NECTAR 40% w/v 240ML SUSP BTL As Ordered ONE (13:55)
[2021-05-29] MEDS ORDERED: VARIBAR PUDDING 40% w/v 230ML TUBE As Ordered ONE (13:55)
[2021-05-29] MEDS ORDERED: BARIUM SULFATE 700 MG TABLET (E-Z-DISK) As Ordered ONE (13:56)
[2021-05-29] MEDS ORDERED: E-Z-PAQUE 96% w/w SUSP 176GM BTL As Ordered ONE (13:56)
[2021-05-29 14:00] VITALS: BP 110/61
--- NOTE | 2021-05-29 16:31 | REP ---
INDICATION: R/O aspiration PNA. COMPARISON: None. TECHNIQUE: The procedure was performed by LISSETTE Mcwilliams, under the direct supervision of Dr. Garcia. The procedure was performed with Bhavani Headley from speech pathology present. 5 ml aliquots of thin, pudding, mixed fruit, soft food, hard food and pill consistency barium was administered. FINDINGS: The patient was able to successfully swallow all consistencies of barium. There was flash penetration with the nectar consistency. This was only seen 1 time with all other swallows there was no penetration or aspiration. The detailed report of this examination will be provided by speech pathology. IMPRESSION: The patient was able to successfully swallow all consistencies of barium. There was flash penetration with the nectar consistency barium. This was only seen with 1 swallow. There was no aspiration or penetration with any of the other swallowing attempts. Please see detailed speech pathology report for further evaluation. 2.9 minutes of fluoroscopy time was utilized for this procedure. Some fluoroscopic images are performed with last image hold technology. These images require no additional radiation <Electronically signed by Veronica Garg > 05/29/21 1559 <Electronically signed by Chet Garcia > 05/29/21 [id number]
[2021-05-29] MEDS: LACTOBACILLUS ACIDOPHILUS CAP (BACID) PO SCH (17:21)
--- NOTE | 2021-05-29 17:40 | IPNPDOC ---
Date Seen The patient was seen on 05/29/21. Progress Note SUBJECTIVE: Swallowing test negative for aspiration. Persistent leukocytosis appears to be chronic, primary care doctor is also working her up for this. WBC improved today to 13.9, afebrile. Denies chest pain, n/v/d, shortness of breath. OBJECTIVE: PHYSICAL EXAMINATION Vitals: see below General: No distress cooperative pleasant, awake alert oriented x3 HEENT: No JVD, thyromegaly or cervical lymphadenopathy. Moist mucous membranes Lungs: clear b/l upper lobes. fine crepitations right base. Kyphotic Heart: S1, S2, sinus rhythm. Abdomen: Obese, soft, nontender, non-distended. Suprapubic Smart catheter in place. Extremities: No cyanosis, clubbing. Neuro: Cranial nerves II-XII intact, no focal deficits Laboratory data, imaging study, microbiology: Please see the chart. Modified barium swallow 05/29/2021: No aspiration ASSESSMENT AND PLAN: A 70-year-old female with chronic dementia, lives in [place], with chronic suprapubic catheter which was malfunctioning, found to be septic with significant leukocytosis, admitted for presumed catheter- associated urinary tract infection. She has history of neurogenic bladder with chronic catheter, CHF, COPD, on 2 liters home oxygen and bed-bound, at baseline. IMPRESSION: Persistent leukocytosis, r/o 2/2 to ? community acquired aspiration RML/RLL, unlikely aspiration Iron deficiency anemia possibly 2/2 to slow GI bleed?, occult blood +, s/p transfusion this admission CAUTI, recurrent MRSA POSITIVE Neurogenic bladder with malfunctioning suprapubic catheter Hypernatremia, resolved. Hypokalemia, resolved. CHF, diastolic dysfunction, compensated. Acute delirium and chronic dementia, resolved COPD on 2 liters of home. Chronic hypoxic respiratory failure on 2 liters all the time. Type 2 diabetes, insulin-dependent. Hypertension, controlled History of left breast cancer, ER positive. GILBERT on CPAP. Depression. Chronic osteoporosis. History of MRSA pneumonia PCP notes obtained showed WBC chronically elevated over the past 6 months at the very least, averaging 1213. Etiology of persistent leukocytosis is unknown at this time per PCP. Peripheral smear unremarkable. Modified barium swallow did not show signs or symptoms of aspiration. Per ID, c/w PO augmentin until 06/01/21. Leukocytosis with a chest CT finding of pneumonia although reviewed data chest CT with Pulmonary. They feel this is chronic with atelectasis. Procalcitonin and sed rate and CRP are within normal limits. She will need f/u with urology as o/p. MRSA carrier but no evidence of MRSA pneumonia per ID. Occult blood is positive, H/H stable. Will need o/p colonoscopy. DISPOSITION: Plan is home at discharge and hopeful for d/c 05/30/21. VS, I&O, 24H, Fishbone Vital Signs/I&O Vital Signs Date Time Temp Pulse Resp B/P (MAP) Pulse Ox O2 Delivery O2 Flow Rate FiO2 05/29/21 14:00 98.8 84 18 110/61 (77) 93 Room Air 05/27/21 20:17 2.0 I&O- Last 24 Hours up to 6 AM 05/29/21 06:00 Intake Total 1425 ml Output Total 2075 ml Balance -650 ml Laboratory Data 24H LABS Laboratory Tests 2 05/28/21 18:24: Differential Slide Review Report, Peripheral Blood Smear Path Consult PERIPHERAL SMEAR 05/28/21 20:46: Bedside Glucose (Misc Panel) 301H 05/29/21 06:27: Nucleated Red Blood Cells % (auto) 0.0, Anion Gap 6L, Glomerular Filtration Rate > 60.0, Calcium Level 8.9, Total Bilirubin 0.3, Aspartate Amino Transf (AST/SGOT) 6L, Alanine Aminotransferase (ALT/SGPT) 35, Alkaline Phosphatase 79, Total Protein 5.8L, Albumin 2.4L, Albumin/Globulin Ratio 0.7L 05/29/21 11:52: Bedside Glucose (Misc Panel) 253H 05/29/21 16:27: Bedside Glucose (Misc Panel) 183H CBC/BMP Laboratory Tests 05/29/21 06:27 Microbiology Microbiology 05/25/21 Stool Occult Blood (MARCUS) - Final, Complete 05/25/21 Urine Culture - Final, Complete 05/23/21 Blood Culture - Final, Complete NO GROWTH AFTER 5 DAYS 05/23/21 Blood Culture - Final, Complete NO GROWTH AFTER 5 DAYS 05/22/21 Urine Culture - Final, Complete Aby Nicole MD May 29, 2021 17:40
[2021-05-29] MEDS: DOCUSATE SODIUM 100MG CAPSULE PO SCH (20:54)
[2021-05-29] MEDS: FERROUS SULFATE 325MG TAB PO SCH (20:54)
[2021-05-29] MEDS: ATORVASTATIN 20 MG TAB PO SCH (20:54)
[2021-05-29] MEDS: DONEPEZIL 5 MG TAB PO SCH (20:55)
[2021-05-29] MEDS: LETROZOLE 2.5 MG TAB PO SCH (20:58)
[2021-05-29] MEDS: SERTRALINE HCL 50 MG TAB PO SCH (21:02)
[2021-05-30 06:00] VITALS: BP 141/77
[2021-05-30 06:13] LABS: HEMATOCRIT 34.3 % (36.0-47.0); HEMOGLOBIN 9.7 g/dl (12.0-15.5); MEAN CORPUSCULAR HEMOGLOBIN 23.4 pg (27.0-33.0); MEAN CORPUSCULAR HGB CONC 28.3 g/dl (32.0-36.5); MEAN CORPUSCULAR VOLUME 82.9 fl (80.0-96.0); PLATELET COUNT, AUTOMATED 168 10^3/uL (150-450); RED BLOOD COUNT 4.14 10^6/uL (4.00-5.40); WHITE BLOOD COUNT 14.2 10^3/uL (4.0-10.0)
[2021-05-30 06:33] LABS: ALBUMIN 2.4 GM/DL (3.2-5.2); ALT/SGPT 32 U/L (12-78); BILIRUBIN,TOTAL 0.3 MG/DL (0.2-1.0); BLOOD UREA NITROGEN 22 MG/DL (7-18); CALCIUM LEVEL 8.9 MG/DL (8.8-10.2); CARBON DIOXIDE LEVEL 27 MEQ/L (21-32); CHLORIDE LEVEL 109 MEQ/L (98-107); CREATININE FOR GFR 0.92 MG/DL (0.55-1.30); GLOMERULAR FILTRATION RATE > 60.0 (>39); GLUCOSE, FASTING 175 MG/DL (70-100); POTASSIUM SERUM 3.7 MEQ/L (3.5-5.1); SODIUM LEVEL 143 MEQ/L (136-145); TOTAL PROTEIN 5.8 GM/DL (6.4-8.2)
[2021-05-30] MEDS: FORMOTEROL FUMARATE 20 MCG/2 ML INHALATION SOLUTION (PERFOROMIST) INH SCH ×2 (07:37→19:15)
[2021-05-30 07:48] VITALS: BP 140/80
[2021-05-30] MEDS: AUGMENTIN 875 MG TAB PO SCH ×2 (08:41→20:34)
[2021-05-30] MEDS: OCUVITE 1 TAB PO SCH (08:41)
[2021-05-30] MEDS: DOCUSATE SODIUM 100MG CAPSULE PO SCH ×2 (08:42→20:34)
[2021-05-30] MEDS: FUROSEMIDE 20 MG TAB PO SCH (08:43)
[2021-05-30] MEDS: FERROUS SULFATE 325MG TAB PO SCH ×2 (08:44→20:33)
[2021-05-30] MEDS: POTASSIUM CHLORIDE 10MEQ SR TABLET PO SCH ×2 (08:45→20:34)
[2021-05-30] MEDS: CALCIUM/VITAMIN D 500 MG TAB PO SCH (08:46)
[2021-05-30] MEDS: APIXABAN 5 MG TAB (ELIQUIS) PO SCH ×2 (08:47→20:34)
[2021-05-30] MEDS: GABAPENTIN 100 MG CAP PO SCH ×3 (08:47→20:33)
[2021-05-30] MEDS: guaiFENesin ER 600 MG TAB PO SCH ×2 (08:49→20:34)
[2021-05-30] MEDS: LOSARTAN 25 MG TAB PO SCH (08:49)
[2021-05-30] MEDS: MEMANTINE 5MG TABLET (NAMENDA) PO SCH ×2 (08:51→20:33)
[2021-05-30] MEDS: MIRALAX *UNIT DOSE* 17GM PACKET PO SCH (08:54)
[2021-05-30] MEDS: LEVEMIR (INSULIN DETEMIR) 1 UNITS/0.01ML SC SCH (08:54)
[2021-05-30] MEDS: HumaLOG INSULIN (NovoLOG) PER UNIT SC SCH ×4 (09:04→20:32)
[2021-05-30 14:00] VITALS: BP 128/62
--- NOTE | 2021-05-30 15:41 | IPNPDOC ---
Text Note Date of Service The patient was seen on 05/30/21. NOTE Subjective: Katey is a 70 year old female being followed by ID for leukocytosis and pneumonia. She also has a chronic suprapubic catheter that was malfunctioning and removed upon arrival. Today she reports she is doing fairly well and is waiting to go home. She was planned to be discharged today, but is remaining in the hospital due to a COVID diagnosis in the family and concerns over her catching it if she were to return home. She feels tired due to poor sleep and only complains of mild left lower quadrant abdominal pain and back pain. She would like to be able to get out of bed and into a chair to decrease pressure on her back. She denies fevers, headaches, chest pain, abdominal pain, vomiting, and diarrhea and states that she is eating well. She does have a chron ic cough and is usually on oxygen at home, however she is not using the oxygen now and feels fine. Objective: General: Obese female resting in bed. She had just finished her lunch. She is alert and oriented x3 and cooperates with exam, although she does have difficulty moving around. Heart: Distant due to body habitus but regular rate and rhythm. No murmurs were heard. Lungs: Breath sounds distant due to body habitus but clear. No abnormal sounds were heard. Abdomen: Bowel sounds present. Obese and soft with only slight left lower quadrant tenderness. : Smart catheter in place. Extremities: No edema present, her feet are protected by foam cushions. Imaging: A barium swallow study was done and showed no aspiration. Labs: Leukocytosis continuing at 14.2. It was 13.9 yesterday. Cultures negative. Assessment: Rubia has chronic COPD and leukocytosis that is also being worked up by her PCP. She also as chronic urinary retention with a chronic suprapubic catheter that had to be removed due to malfunction. She is being treated with Augmentin 875mg twice a day for suspected infection and appears to be doing well. Her main complaint is back pain due to bed positioning. Plan: -Consult PT to get her out of bed and into a chair in order to move around and decrease pressure on her back. -Discharge home when the COVID situation in the home resolves. -Follow up with PCP regarding chronic leukocytosis. VS,Haroon, I+O VSHaroon, I+O Laboratory Tests 05/30/21 05:47 Vital Signs Date Time Temp Pulse Resp B/P (MAP) Pulse Ox O2 Delivery O2 Flow Rate FiO2 05/30/21 08:49 140/80 05/30/21 07:48 98.9 80 16 Room Air 05/30/21 06:00 94 05/27/21 20:17 2.0 I&O- Last 24 Hours up to 6 AM 05/30/21 05:59 Intake Total 1095 ml Output Total 1575 ml Balance -480 ml EDGAR RAMIREZ OMS-3 May 30, 2021 15:41
[2021-05-30] MEDS: LACTOBACILLUS ACIDOPHILUS CAP (BACID) PO SCH (17:40)
[2021-05-30] MEDS: LETROZOLE 2.5 MG TAB PO SCH (20:33)
[2021-05-30] MEDS: ATORVASTATIN 20 MG TAB PO SCH (20:34)
[2021-05-30] MEDS: SERTRALINE HCL 50 MG TAB PO SCH (20:34)
[2021-05-30] MEDS: DONEPEZIL 5 MG TAB PO SCH (20:34)
[2021-05-31 06:00] VITALS: BP 124/60
[2021-05-31 06:11] LABS: HEMATOCRIT 36.7 % (36.0-47.0); HEMOGLOBIN 10.3 g/dl (12.0-15.5); MEAN CORPUSCULAR HEMOGLOBIN 23.4 pg (27.0-33.0); MEAN CORPUSCULAR HGB CONC 28.1 g/dl (32.0-36.5); MEAN CORPUSCULAR VOLUME 83.4 fl (80.0-96.0); PLATELET COUNT, AUTOMATED 168 10^3/uL (150-450); WHITE BLOOD COUNT 13.3 10^3/uL (4.0-10.0)
[2021-05-31 06:36] LABS: ALBUMIN 2.6 GM/DL (3.2-5.2); ALT/SGPT 28 U/L (12-78); BILIRUBIN,TOTAL 0.3 MG/DL (0.2-1.0); BLOOD UREA NITROGEN 21 MG/DL (7-18); CALCIUM LEVEL 9.1 MG/DL (8.8-10.2); CARBON DIOXIDE LEVEL 30 MEQ/L (21-32); CHLORIDE LEVEL 111 MEQ/L (98-107); CREATININE FOR GFR 0.83 MG/DL (0.55-1.30); GLOMERULAR FILTRATION RATE > 60.0 (>39); GLUCOSE, FASTING 158 MG/DL (70-100); POTASSIUM SERUM 3.7 MEQ/L (3.5-5.1); SODIUM LEVEL 145 MEQ/L (136-145); TOTAL PROTEIN 6.1 GM/DL (6.4-8.2)
[2021-05-31] MEDS: FORMOTEROL FUMARATE 20 MCG/2 ML INHALATION SOLUTION (PERFOROMIST) INH SCH ×2 (07:08→20:46)
[2021-05-31] MEDS: MIRALAX *UNIT DOSE* 17GM PACKET PO SCH (07:50)
[2021-05-31] MEDS: CALCIUM/VITAMIN D 500 MG TAB PO SCH (07:51)
[2021-05-31] MEDS: LOSARTAN 25 MG TAB PO SCH (07:51)
[2021-05-31] MEDS: GABAPENTIN 100 MG CAP PO SCH ×3 (07:51→22:42)
[2021-05-31] MEDS: APIXABAN 5 MG TAB (ELIQUIS) PO SCH ×2 (07:51→22:45)
[2021-05-31] MEDS: POTASSIUM CHLORIDE 10MEQ SR TABLET PO SCH ×2 (07:52→22:45)
[2021-05-31] MEDS: guaiFENesin ER 600 MG TAB PO SCH ×2 (07:52→22:45)
[2021-05-31] MEDS: FERROUS SULFATE 325MG TAB PO SCH ×2 (07:52→22:45)
[2021-05-31] MEDS: DOCUSATE SODIUM 100MG CAPSULE PO SCH ×2 (07:52→22:44)
[2021-05-31] MEDS: AUGMENTIN 875 MG TAB PO SCH (07:52)
[2021-05-31] MEDS: FUROSEMIDE 20 MG TAB PO SCH (07:53)
[2021-05-31] MEDS: MEMANTINE 5MG TABLET (NAMENDA) PO SCH ×2 (07:53→22:43)
[2021-05-31] MEDS: HumaLOG INSULIN (NovoLOG) PER UNIT SC SCH ×4 (07:54→21:00)
[2021-05-31] MEDS: LEVEMIR (INSULIN DETEMIR) 1 UNITS/0.01ML SC SCH (07:54)
[2021-05-31] MEDS: OCUVITE 1 TAB PO SCH (09:19)
[2021-05-31] MEDS: LACTOBACILLUS ACIDOPHILUS CAP (BACID) PO SCH (17:21)
[2021-05-31] MEDS: DONEPEZIL 5 MG TAB PO SCH (22:40)
[2021-05-31] MEDS: ATORVASTATIN 20 MG TAB PO SCH (22:41)
[2021-05-31] MEDS: SERTRALINE HCL 50 MG TAB PO SCH (22:44)
[2021-05-31] MEDS: LETROZOLE 2.5 MG TAB PO SCH (22:46)
[2021-05-31 23:52] VITALS: O2SAT 92
--- NOTE | 2021-06-01 05:14 | IPN ---
PROGRESS NOTE DATE: 05/31/2021 SUBJECTIVE: Rubia seems to be doing well. She wants to talk to her daughter. She is anxious to go home. We called her daughter, who stated that she would like to have her mother back once their quarantine is done. She is supposed to be quarantined until June 09. The patient states her cough is markedly better. She has no nausea, vomiting or diarrhea and no abdominal pain. She is Lauren lifted to her wheelchair every day by her daughter. LABORATORY DATA: White count 13.3, hemoglobin 10.3, hematocrit 36.7 and platelets 168. Sodium 145, potassium 3.7, chloride 111, bicarbonate 30, BUN 31, creatinine 0.83, glucose 158, calcium 9.9, AST 5, ALT 28, alkaline phosphatase 85, albumin 2.6. OBJECTIVE: On physical examination, temperature is 98.8, pulse 83, respirations 18, blood pressure 124/60, O2 saturation 95% on room air. The patient uses a CPAP at night. Heart: Normal S1, S2, no murmurs, distant. Lungs: Diminished at bases, but clear. NO wheezes, rales or rhonchi. Abdomen: Morbidly obese, soft, nontender. Extremities: Trace edema bilaterally. No range of motion. She does not move her lower extremities. She has off loading boots. IMPRESSION: 1. Pneumonia treated with 10 days of antibiotics. Augmentin will be discontinued today. The patient is back to baseline. Chronic cough. O2 saturation is 94% on room air. She usually uses O2 at home during the day. 2. Methicillin-resistant Staphylococcus aureus (MRSA) carrier, but no evidence of methicillin-resistant Staphylococcus aureus (MRSA) pneumonia. 3. COVID exposure. PLAN: Discharge the patient home once the quarantine of her family is done, supposedly on June 09. Hopefully, the patient could be moved from bed to wheelchair or to chair with a Lauren lift. The case was discussed with her daughter, who will take her back home once their quarantine is over June 09. [facility]ITALBartolome
[2021-06-01 06:00] VITALS: BP 136/71
[2021-06-01] MEDS: FORMOTEROL FUMARATE 20 MCG/2 ML INHALATION SOLUTION (PERFOROMIST) INH SCH ×2 (06:19→21:05)
[2021-06-01 06:48] LABS: HEMATOCRIT 36.5 % (36.0-47.0); HEMOGLOBIN 10.4 g/dl (12.0-15.5); MEAN CORPUSCULAR HEMOGLOBIN 23.9 pg (27.0-33.0); MEAN CORPUSCULAR HGB CONC 28.5 g/dl (32.0-36.5); MEAN CORPUSCULAR VOLUME 83.7 fl (80.0-96.0); PLATELET COUNT, AUTOMATED 156 10^3/uL (150-450); RED BLOOD COUNT 4.36 10^6/uL (4.00-5.40); WHITE BLOOD COUNT 14.6 10^3/uL (4.0-10.0)
[2021-06-01 07:09] LABS: ALBUMIN 2.6 GM/DL (3.2-5.2); ALT/SGPT 26 U/L (12-78); BILIRUBIN,TOTAL 0.3 MG/DL (0.2-1.0); BLOOD UREA NITROGEN 20 MG/DL (7-18); CALCIUM LEVEL 8.8 MG/DL (8.8-10.2); CARBON DIOXIDE LEVEL 26 MEQ/L (21-32); CHLORIDE LEVEL 112 MEQ/L (98-107); CREATININE FOR GFR 0.84 MG/DL (0.55-1.30); GLOMERULAR FILTRATION RATE > 60.0 (>39); GLUCOSE, FASTING 173 MG/DL (70-100); SODIUM LEVEL 146 MEQ/L (136-145); TOTAL PROTEIN 5.6 GM/DL (6.4-8.2)
[2021-06-01] MEDS: HumaLOG INSULIN (NovoLOG) PER UNIT SC SCH ×4 (08:46→21:00)
[2021-06-01] MEDS: MEMANTINE 5MG TABLET (NAMENDA) PO SCH ×2 (08:46→22:05)
[2021-06-01] MEDS: LEVEMIR (INSULIN DETEMIR) 1 UNITS/0.01ML SC SCH (08:46)
[2021-06-01] MEDS: GABAPENTIN 100 MG CAP PO SCH ×3 (08:47→22:03)
[2021-06-01] MEDS: FUROSEMIDE 20 MG TAB PO SCH (08:47)
[2021-06-01] MEDS: OCUVITE 1 TAB PO SCH (08:47)
[2021-06-01] MEDS: CALCIUM/VITAMIN D 500 MG TAB PO SCH (08:47)
[2021-06-01] MEDS: guaiFENesin ER 600 MG TAB PO SCH ×2 (08:47→22:05)
[2021-06-01] MEDS: FERROUS SULFATE 325MG TAB PO SCH ×2 (08:47→22:05)
[2021-06-01] MEDS: DOCUSATE SODIUM 100MG CAPSULE PO SCH ×2 (08:47→22:05)
[2021-06-01] MEDS: MIRALAX *UNIT DOSE* 17GM PACKET PO SCH (08:48)
[2021-06-01] MEDS: LOSARTAN 25 MG TAB PO SCH (08:48)
[2021-06-01] MEDS: POTASSIUM CHLORIDE 10MEQ SR TABLET PO SCH ×2 (08:48→22:06)
[2021-06-01] MEDS: APIXABAN 5 MG TAB (ELIQUIS) PO SCH ×2 (08:48→22:04)
[2021-06-01] MEDS: LACTOBACILLUS ACIDOPHILUS CAP (BACID) PO SCH (17:39)
[2021-06-01 22:00] VITALS: BP 131/64
[2021-06-01] MEDS: DONEPEZIL 5 MG TAB PO SCH (22:03)
[2021-06-01] MEDS: SERTRALINE HCL 50 MG TAB PO SCH (22:05)
[2021-06-01] MEDS: ATORVASTATIN 20 MG TAB PO SCH (22:05)
[2021-06-01] MEDS: LETROZOLE 2.5 MG TAB PO SCH (22:06)
[2021-06-02 06:00] VITALS: BP 128/64
[2021-06-02 06:53] LABS: HEMATOCRIT 35.9 % (36.0-47.0); HEMOGLOBIN 10.2 g/dl (12.0-15.5); MEAN CORPUSCULAR HEMOGLOBIN 23.7 pg (27.0-33.0); MEAN CORPUSCULAR HGB CONC 28.4 g/dl (32.0-36.5); MEAN CORPUSCULAR VOLUME 83.5 fl (80.0-96.0); PLATELET COUNT, AUTOMATED 154 10^3/uL (150-450); WHITE BLOOD COUNT 14.6 10^3/uL (4.0-10.0)
[2021-06-02 07:25] LABS: ALBUMIN 2.7 GM/DL (3.2-5.2); ALT/SGPT 27 U/L (12-78); BILIRUBIN,TOTAL 0.3 MG/DL (0.2-1.0); BLOOD UREA NITROGEN 22 MG/DL (7-18); CALCIUM LEVEL 9.1 MG/DL (8.8-10.2); CARBON DIOXIDE LEVEL 26 MEQ/L (21-32); CHLORIDE LEVEL 109 MEQ/L (98-107); CREATININE FOR GFR 0.84 MG/DL (0.55-1.30); GLOMERULAR FILTRATION RATE > 60.0 (>39); GLUCOSE, FASTING 161 MG/DL (70-100); POTASSIUM SERUM 3.6 MEQ/L (3.5-5.1); SODIUM LEVEL 144 MEQ/L (136-145); TOTAL PROTEIN 5.8 GM/DL (6.4-8.2)
[2021-06-02] MEDS: CALCIUM/VITAMIN D 500 MG TAB PO SCH (08:24)
[2021-06-02] MEDS: POTASSIUM CHLORIDE 10MEQ SR TABLET PO SCH ×2 (08:24→19:53)
[2021-06-02] MEDS: FUROSEMIDE 20 MG TAB PO SCH (08:24)
[2021-06-02] MEDS: GABAPENTIN 100 MG CAP PO SCH ×3 (08:24→19:51)
[2021-06-02] MEDS: guaiFENesin ER 600 MG TAB PO SCH ×2 (08:24→19:52)
[2021-06-02] MEDS: APIXABAN 5 MG TAB (ELIQUIS) PO SCH ×2 (08:24→19:52)
[2021-06-02] MEDS: MEMANTINE 5MG TABLET (NAMENDA) PO SCH ×2 (08:24→19:53)
[2021-06-02] MEDS: FERROUS SULFATE 325MG TAB PO SCH ×2 (08:24→19:53)
[2021-06-02] MEDS: LOSARTAN 25 MG TAB PO SCH (08:25)
[2021-06-02] MEDS: DOCUSATE SODIUM 100MG CAPSULE PO SCH ×2 (08:25→19:53)
[2021-06-02] MEDS: HumaLOG INSULIN (NovoLOG) PER UNIT SC SCH ×4 (08:25→20:53)
[2021-06-02] MEDS: LEVEMIR (INSULIN DETEMIR) 1 UNITS/0.01ML SC SCH (08:26)
[2021-06-02] MEDS: OCUVITE 1 TAB PO SCH (08:31)
[2021-06-02] MEDS: MIRALAX *UNIT DOSE* 17GM PACKET PO SCH (08:32)
[2021-06-02] MEDS: FORMOTEROL FUMARATE 20 MCG/2 ML INHALATION SOLUTION (PERFOROMIST) INH SCH ×2 (09:14→20:28)
[2021-06-02] MEDS: LACTOBACILLUS ACIDOPHILUS CAP (BACID) PO SCH (18:01)
[2021-06-02] MEDS: ATORVASTATIN 20 MG TAB PO SCH (19:52)
[2021-06-02] MEDS: SERTRALINE HCL 50 MG TAB PO SCH (19:52)
[2021-06-02] MEDS: DONEPEZIL 5 MG TAB PO SCH (19:52)
[2021-06-02] MEDS: LETROZOLE 2.5 MG TAB PO SCH (19:53)
[2021-06-03] MEDS: ALENDRONATE 35MG TABLET PO SCH (05:47)
[2021-06-03 06:00] VITALS: BP 121/56
[2021-06-03] MEDS: FORMOTEROL FUMARATE 20 MCG/2 ML INHALATION SOLUTION (PERFOROMIST) INH SCH ×2 (07:31→20:10)
[2021-06-03] MEDS: guaiFENesin ER 600 MG TAB PO SCH ×2 (08:35→20:53)
[2021-06-03] MEDS: CALCIUM/VITAMIN D 500 MG TAB PO SCH (08:35)
[2021-06-03] MEDS: LOSARTAN 25 MG TAB PO SCH (08:35)
[2021-06-03] MEDS: HumaLOG INSULIN (NovoLOG) PER UNIT SC SCH ×4 (08:35→20:45)
[2021-06-03] MEDS: FERROUS SULFATE 325MG TAB PO SCH ×2 (08:35→20:54)
[2021-06-03] MEDS: DOCUSATE SODIUM 100MG CAPSULE PO SCH ×2 (08:35→20:53)
[2021-06-03] MEDS: GABAPENTIN 100 MG CAP PO SCH ×3 (08:35→20:53)
[2021-06-03] MEDS: FUROSEMIDE 20 MG TAB PO SCH (08:35)
[2021-06-03] MEDS: LEVEMIR (INSULIN DETEMIR) 1 UNITS/0.01ML SC SCH (08:36)
[2021-06-03] MEDS: MIRALAX *UNIT DOSE* 17GM PACKET PO SCH (08:36)
[2021-06-03] MEDS: MEMANTINE 5MG TABLET (NAMENDA) PO SCH ×2 (08:36→20:53)
[2021-06-03] MEDS: POTASSIUM CHLORIDE 10MEQ SR TABLET PO SCH ×2 (08:36→20:54)
[2021-06-03] MEDS: APIXABAN 5 MG TAB (ELIQUIS) PO SCH ×2 (08:36→20:54)
[2021-06-03] MEDS: OCUVITE 1 TAB PO SCH (08:41)
[2021-06-03] MEDS: LACTOBACILLUS ACIDOPHILUS CAP (BACID) PO SCH (17:31)
[2021-06-03] MEDS: LETROZOLE 2.5 MG TAB PO SCH (20:53)
[2021-06-03] MEDS: ATORVASTATIN 20 MG TAB PO SCH (20:53)
[2021-06-03] MEDS: DONEPEZIL 5 MG TAB PO SCH (20:53)
[2021-06-03] MEDS: SERTRALINE HCL 50 MG TAB PO SCH (20:54)
[2021-06-04 06:09] VITALS: BP 144/59
[2021-06-04] MEDS: FORMOTEROL FUMARATE 20 MCG/2 ML INHALATION SOLUTION (PERFOROMIST) INH SCH ×2 (07:25→20:08)
[2021-06-04] MEDS: DOCUSATE SODIUM 100MG CAPSULE PO SCH ×2 (08:45→20:55)
[2021-06-04] MEDS: APIXABAN 5 MG TAB (ELIQUIS) PO SCH ×2 (08:45→20:56)
[2021-06-04] MEDS: CALCIUM/VITAMIN D 500 MG TAB PO SCH (08:45)
[2021-06-04] MEDS: MEMANTINE 5MG TABLET (NAMENDA) PO SCH ×2 (08:45→20:56)
[2021-06-04] MEDS: FERROUS SULFATE 325MG TAB PO SCH ×2 (08:45→20:56)
[2021-06-04] MEDS: guaiFENesin ER 600 MG TAB PO SCH ×2 (08:45→20:56)
[2021-06-04] MEDS: POTASSIUM CHLORIDE 10MEQ SR TABLET PO SCH ×2 (08:45→20:57)
[2021-06-04] MEDS: LOSARTAN 25 MG TAB PO SCH (08:46)
[2021-06-04] MEDS: FUROSEMIDE 20 MG TAB PO SCH (08:46)
[2021-06-04] MEDS: GABAPENTIN 100 MG CAP PO SCH ×3 (08:46→20:56)
[2021-06-04] MEDS: LEVEMIR (INSULIN DETEMIR) 1 UNITS/0.01ML SC SCH (08:46)
[2021-06-04] MEDS: HumaLOG INSULIN (NovoLOG) PER UNIT SC SCH ×4 (08:47→20:44)
[2021-06-04] MEDS: OCUVITE 1 TAB PO SCH (08:54)
[2021-06-04] MEDS: MIRALAX *UNIT DOSE* 17GM PACKET PO SCH (08:54)
[2021-06-04] MEDS: LACTOBACILLUS ACIDOPHILUS CAP (BACID) PO SCH (17:26)
[2021-06-04] MEDS: SERTRALINE HCL 50 MG TAB PO SCH (20:56)
[2021-06-04] MEDS: DONEPEZIL 5 MG TAB PO SCH (20:57)
[2021-06-04] MEDS: ATORVASTATIN 20 MG TAB PO SCH (20:57)
[2021-06-04] MEDS: LETROZOLE 2.5 MG TAB PO SCH (20:57)
[2021-06-05 06:00] VITALS: BP 132/69
[2021-06-05] MEDS: FORMOTEROL FUMARATE 20 MCG/2 ML INHALATION SOLUTION (PERFOROMIST) INH SCH ×2 (07:30→20:01)
[2021-06-05] MEDS: DOCUSATE SODIUM 100MG CAPSULE PO SCH ×2 (08:33→20:30)
[2021-06-05] MEDS: POTASSIUM CHLORIDE 10MEQ SR TABLET PO SCH ×2 (08:33→20:30)
[2021-06-05] MEDS: CALCIUM/VITAMIN D 500 MG TAB PO SCH (08:33)
[2021-06-05] MEDS: GABAPENTIN 100 MG CAP PO SCH ×3 (08:33→20:30)
[2021-06-05] MEDS: FERROUS SULFATE 325MG TAB PO SCH ×2 (08:33→20:30)
[2021-06-05] MEDS: APIXABAN 5 MG TAB (ELIQUIS) PO SCH (08:34)
[2021-06-05] MEDS: MEMANTINE 5MG TABLET (NAMENDA) PO SCH ×2 (08:34→20:32)
[2021-06-05] MEDS: LOSARTAN 25 MG TAB PO SCH (08:34)
[2021-06-05] MEDS: guaiFENesin ER 600 MG TAB PO SCH ×2 (08:34→20:33)
[2021-06-05] MEDS: HumaLOG INSULIN (NovoLOG) PER UNIT SC SCH ×4 (08:35→20:33)
[2021-06-05] MEDS: LEVEMIR (INSULIN DETEMIR) 1 UNITS/0.01ML SC SCH (08:36)
[2021-06-05] MEDS: MIRALAX *UNIT DOSE* 17GM PACKET PO SCH (08:36)
[2021-06-05] MEDS: OCUVITE 1 TAB PO SCH (08:42)
[2021-06-05] MEDS: FUROSEMIDE 20 MG TAB PO SCH (09:00)
--- NOTE | 2021-06-05 17:17 | IPNPDOC ---
Subjective Date Seen The patient was seen on 06/05/21. Subjective Chief Complaint/HPI Having some bloody stools. No abdominal pain , has h/o stool incontinence and hemorrhoids. Will hold eliquis. Objective Physical Examination General Exam: Positive: Alert, Cooperative, No Acute Distress ENT Exam: Positive: Mucous membr. moist/pink Chest Exam: Positive: Normal air movement, Other (bibasilar crackles); Negative: Clear to auscultation, Rales, Rhonchi, Wheezing Heart Exam: Positive: Rate Normal, Regular Rhythm, Normal S1, Normal S2; Negative: Murmurs, Rubs Abdomen Exam: Positive: Normal bowel sounds, Soft, Other (suprapubic catheter); Negative: Tenderness Extremity Exam: Negative: Clubbing, Cyanosis, Edema Skin Exam: Positive: Lesion (dep tissues injury in left heel. ) Assessment /Plan Assessment This is a 70-year-old female with chronic dementia, lives in [place], with chronic suprapubic catheter which was malfunctioning, found to be septic with significant leukocytosis, admitted for presumed catheter- associated urinary tract infection. She has history of neurogenic bladder with chronic catheter, CHF, COPD, on 2 liters home oxygen and bed-bound, at baseline. Deep tissue injury in left heel will consult wound care. Recurrent CAUTI Finished antibiotics. Neurogenic bladder with malfunctioning suprapubic catheter suprapubic catheter changed to lino catheter on 05/23/21 pateitn was ordered Augmentin by urologist outpatient this was completed. Persistent leukocytosis with abnormal CT chest chest CT finding of pneumonia although reviewed data chest CT with Pulmonary. They feel this is chronic with atelectasis. Procalcitonin and sed rate and CRP are within normal limits. barium swallow no aspiration Chronic Leucocytosis between 12K to 14K Finished antibiotics course No further need for antibiotics Iron deficiency anemia possibly 2/2 to slow GI bleed + occult blood + also anthony bloody stool noted on 06/05/21 will hold eliquis. s/p transfusion this admission patient is on eliquis may need outpatient colonoscopy. continue ferrous sulfate. H/o Pulmonary embolism on eliquis CHF, diastolic dysfunction, compensated. continue lasix Dementia Vascular and Alzheimer's with acute delirium Delirium has resolved on memantine and donepezil. COPD with chronic hypoxic respiratory failure formoterol and albuterol on 2 liters of home. Type 2 diabetes with neuropathy continue levemir and lispro and gabapentin Hypertension, controlled on losartan and diltiazem some low bp readings in hospital diltiazem dose is reduced. History of left breast cancer, ER positive. On letrozole GILBERT on CPAP. Depression sertraline Chronic osteoporosis. alendronate, calcium and vit D Bed bound and royal lift. Chronic pain. oxycodone MRSA carrier but no MRSA pneumonia as per ID. Plan/VTE VTE Prophylaxis Ordered?: Yes VS, I&O, 24H, Fishbone Vital Signs/I&O Vital Signs Date Time Temp Pulse Resp B/P (MAP) Pulse Ox O2 Delivery O2 Flow Rate FiO2 06/05/21 08:34 93/48 06/05/21 06:00 97.9 82 20 92 NIPPV (BIPAP/CPAP) I&O- Last 24 Hours up to 6 AM 06/05/21 06:00 Intake Total 450 ml Output Total 1350 ml Balance -900 ml Laboratory Data 24H LABS Laboratory Tests 2 06/04/21 16:41: Bedside Glucose (Misc Panel) 163H 06/04/21 20:37: Bedside Glucose (Misc Panel) 210H 06/05/21 06:44: Bedside Glucose (Misc Panel) 154H 06/05/21 11:23: Bedside Glucose (Misc Panel) 229H Rhea Wood MD Jun 05, 2021 17:17
[2021-06-05] MEDS: LACTOBACILLUS ACIDOPHILUS CAP (BACID) PO SCH (17:31)
[2021-06-05] MEDS: ATORVASTATIN 20 MG TAB PO SCH (20:30)
[2021-06-05] MEDS: SERTRALINE HCL 50 MG TAB PO SCH (20:30)
[2021-06-05] MEDS: diltiaZEM **CD** 180 MG CAP PO SCH (20:32)
[2021-06-05] MEDS: DONEPEZIL 5 MG TAB PO SCH (20:33)
[2021-06-05] MEDS: LETROZOLE 2.5 MG TAB PO SCH (20:33)
[2021-06-06 06:00] VITALS: BP 106/52
[2021-06-06] MEDS: FORMOTEROL FUMARATE 20 MCG/2 ML INHALATION SOLUTION (PERFOROMIST) INH SCH ×2 (07:54→19:39)
[2021-06-06] MEDS: FERROUS SULFATE 325MG TAB PO SCH ×2 (08:01→21:27)
[2021-06-06] MEDS: DOCUSATE SODIUM 100MG CAPSULE PO SCH ×2 (08:02→21:00)
[2021-06-06] MEDS: CALCIUM/VITAMIN D 500 MG TAB PO SCH (08:02)
[2021-06-06] MEDS: guaiFENesin ER 600 MG TAB PO SCH ×2 (08:02→21:28)
[2021-06-06] MEDS: MEMANTINE 5MG TABLET (NAMENDA) PO SCH ×2 (08:02→21:28)
[2021-06-06] MEDS: GABAPENTIN 100 MG CAP PO SCH ×3 (08:02→21:28)
[2021-06-06] MEDS: OCUVITE 1 TAB PO SCH (08:02)
[2021-06-06] MEDS: FUROSEMIDE 20 MG TAB PO SCH (08:03)
[2021-06-06] MEDS: LOSARTAN 25 MG TAB PO SCH (08:03)
[2021-06-06] MEDS: POTASSIUM CHLORIDE 10MEQ SR TABLET PO SCH ×2 (08:03→21:28)
[2021-06-06] MEDS: HumaLOG INSULIN (NovoLOG) PER UNIT SC SCH ×4 (08:05→20:43)
[2021-06-06] MEDS: LEVEMIR (INSULIN DETEMIR) 1 UNITS/0.01ML SC SCH (08:06)
[2021-06-06] MEDS: MIRALAX *UNIT DOSE* 17GM PACKET PO SCH (08:06)
[2021-06-06 08:20] LABS: BASO # 0.1 10^3/uL (0.0-0.2); BASO % 0.5 % (0.0-1.0); EOS # 0.2 10^3/uL (0.0-0.5); EOS % 2.2 % (0.0-3.0); HEMATOCRIT 37.5 % (36.0-47.0); HEMOGLOBIN 10.7 g/dl (12.0-15.5); LYMPH # 1.8 10^3/uL (1.5-5.0); LYMPH % 16.4 % (24.0-44.0); MEAN CORPUSCULAR HEMOGLOBIN 24.3 pg (27.0-33.0); MEAN CORPUSCULAR HGB CONC 28.5 g/dl (32.0-36.5); MEAN CORPUSCULAR VOLUME 85.2 fl (80.0-96.0); MONO # 0.9 10^3/uL (0.0-0.8); MONO % 8.1 % (2.0-8.0); NEUTROPHILS # 7.8 10^3/uL (1.5-8.5); NEUTROPHILS % 72.4 % (36.0-66.0); PLATELET COUNT, AUTOMATED 162 10^3/uL (150-450); WHITE BLOOD COUNT 10.8 10^3/uL (4.0-10.0)
[2021-06-06 08:53] LABS: ALBUMIN 2.7 GM/DL (3.2-5.2); ALT/SGPT 25 U/L (12-78); BILIRUBIN,TOTAL 0.2 MG/DL (0.2-1.0); BLOOD UREA NITROGEN 17 MG/DL (7-18); CALCIUM LEVEL 8.7 MG/DL (8.8-10.2); CARBON DIOXIDE LEVEL 28 MEQ/L (21-32); CHLORIDE LEVEL 110 MEQ/L (98-107); GLOMERULAR FILTRATION RATE > 60.0 (>39); GLUCOSE, FASTING 192 MG/DL (70-100); POTASSIUM SERUM 3.7 MEQ/L (3.5-5.1); SODIUM LEVEL 145 MEQ/L (136-145); TOTAL PROTEIN 5.9 GM/DL (6.4-8.2)
[2021-06-06 08:56] VITALS: BP 102/66
[2021-06-06] MEDS: LACTOBACILLUS ACIDOPHILUS CAP (BACID) PO SCH (17:40)
[2021-06-06] MEDS: diltiaZEM **CD** 180 MG CAP PO SCH (21:27)
[2021-06-06] MEDS: oxyCODONE 5MG TAB PO PRN (21:27)
[2021-06-06] MEDS: ATORVASTATIN 20 MG TAB PO SCH (21:27)
[2021-06-06] MEDS: LETROZOLE 2.5 MG TAB PO SCH (21:28)
[2021-06-06] MEDS: SERTRALINE HCL 50 MG TAB PO SCH (21:28)
[2021-06-06] MEDS: DONEPEZIL 5 MG TAB PO SCH (21:28)
[2021-06-07 06:00] VITALS: BP 136/64
[2021-06-07] MEDS: FORMOTEROL FUMARATE 20 MCG/2 ML INHALATION SOLUTION (PERFOROMIST) INH SCH ×2 (06:07→19:35)
[2021-06-07] MEDS: HumaLOG INSULIN (NovoLOG) PER UNIT SC SCH ×4 (08:16→20:10)
[2021-06-07] MEDS: MIRALAX *UNIT DOSE* 17GM PACKET PO SCH (08:17)
[2021-06-07] MEDS: LEVEMIR (INSULIN DETEMIR) 1 UNITS/0.01ML SC SCH (08:17)
[2021-06-07] MEDS: OCUVITE 1 TAB PO SCH (08:21)
[2021-06-07] MEDS: guaiFENesin ER 600 MG TAB PO SCH ×2 (08:21→20:30)
[2021-06-07] MEDS: MEMANTINE 5MG TABLET (NAMENDA) PO SCH ×2 (08:21→20:30)
[2021-06-07] MEDS: FUROSEMIDE 20 MG TAB PO SCH (08:21)
[2021-06-07] MEDS: DOCUSATE SODIUM 100MG CAPSULE PO SCH ×2 (08:22→20:29)
[2021-06-07] MEDS: FERROUS SULFATE 325MG TAB PO SCH ×2 (08:22→20:30)
[2021-06-07] MEDS: CALCIUM/VITAMIN D 500 MG TAB PO SCH (08:22)
[2021-06-07] MEDS: POTASSIUM CHLORIDE 10MEQ SR TABLET PO SCH ×2 (08:22→20:30)
[2021-06-07] MEDS: LOSARTAN 25 MG TAB PO SCH (08:22)
[2021-06-07] MEDS: GABAPENTIN 100 MG CAP PO SCH ×3 (08:22→20:30)
[2021-06-07] MEDS: LACTOBACILLUS ACIDOPHILUS CAP (BACID) PO SCH (17:34)
--- NOTE | 2021-06-07 18:03 | CR ---
CONSULTATION DATE: 06/07/2021 CONSULTATION REQUESTED BY: Dr. Wood REASON FOR CONSULTATION: Prophylactic wound care recommendations. Wound care telemedicine provides a visual assessment of a wound without the benefit of physical examination. It can assist with establishing a diagnosis and an etiology. This allows for an initial treatment plan. As wounds often change, it may be necessary to modify the original care. Our recommendation is periodic wound reassessment to monitor wound treatment. Failure to comply may result in nonhealing of the wound, possible complications, and/or poor outcome. The recommendations given will serve as treatment options. As I will not be following the patient, this care plan will require the attending physician to give and sign the orders. Upon discharge, outpatient followup can be scheduled at our wound care center if applicable. A 70-year-old morbidly obese female, nonambulatory, was admitted for urological problems associated with her suprapubic catheter. At present they are deciding whether or not to revise the catheter insertion site or simply rely on Smart catheter, which is in place at this time. There was a question as to whether or not there was a left heel pressure injury. On inspection, there is no wound present. There is a skin fold, which can mimic a wound, but there is no open wound identified and no drainage seen. There is no erythema and no evidence of a pressure injury. A heel float boot was brought in by the patient's daughter, and I would agree that this should be utilized in a prophylactic manner. Moisturizer to right and left heels should be initiated, and a heel float boot for the left heel in a prophylactic manner would also be indicated. Re-evaluation if any drainage, erythema, or break in the skin is noted. TOMY
[2021-06-07] MEDS: SERTRALINE HCL 50 MG TAB PO SCH (20:29)
[2021-06-07] MEDS: LETROZOLE 2.5 MG TAB PO SCH (20:29)
[2021-06-07] MEDS: diltiaZEM **CD** 180 MG CAP PO SCH (20:29)
[2021-06-07] MEDS: DONEPEZIL 5 MG TAB PO SCH (20:30)
[2021-06-07] MEDS: ATORVASTATIN 20 MG TAB PO SCH (20:30)
[2021-06-08 06:00] VITALS: BP 112/66
[2021-06-08] MEDS: FORMOTEROL FUMARATE 20 MCG/2 ML INHALATION SOLUTION (PERFOROMIST) INH SCH ×2 (07:40→19:43)
[2021-06-08] MEDS: HumaLOG INSULIN (NovoLOG) PER UNIT SC SCH ×4 (08:16→19:51)
[2021-06-08] MEDS: MIRALAX *UNIT DOSE* 17GM PACKET PO SCH (08:16)
[2021-06-08] MEDS: GABAPENTIN 100 MG CAP PO SCH ×3 (08:17→20:40)
[2021-06-08] MEDS: guaiFENesin ER 600 MG TAB PO SCH ×2 (08:17→20:40)
[2021-06-08] MEDS: DOCUSATE SODIUM 100MG CAPSULE PO SCH ×2 (08:17→20:40)
[2021-06-08] MEDS: LEVEMIR (INSULIN DETEMIR) 1 UNITS/0.01ML SC SCH (08:17)
[2021-06-08] MEDS: LOSARTAN 25 MG TAB PO SCH (08:17)
[2021-06-08] MEDS: MEMANTINE 5MG TABLET (NAMENDA) PO SCH ×2 (08:18→20:40)
[2021-06-08] MEDS: FERROUS SULFATE 325MG TAB PO SCH ×2 (08:18→20:39)
[2021-06-08] MEDS: POTASSIUM CHLORIDE 10MEQ SR TABLET PO SCH ×2 (08:18→20:40)
[2021-06-08] MEDS: CALCIUM/VITAMIN D 500 MG TAB PO SCH (08:18)
[2021-06-08] MEDS: FUROSEMIDE 20 MG TAB PO SCH (08:18)
[2021-06-08] MEDS: OCUVITE 1 TAB PO SCH (08:22)
[2021-06-08] MEDS: APIXABAN 5 MG TAB (ELIQUIS) PO SCH ×2 (09:30→20:39)
--- NOTE | 2021-06-08 11:33 | IPN ---
PROGRESS NOTE DATE: 06/08/2021 SUBJECTIVE: Patient denies any cough, shortness of breath, fever or chills, dysuria, urgency or frequency, abdominal pain, nausea or vomiting. Eating well. No diarrhea. PHYSICAL EXAMINATION: VITAL SIGNS: Temperature 98.4, pulse 76, respiratory rate 18, blood pressure 112/66, 94% on bilevel positive airway pressure (BiPAP). GENERAL: Awake, alert, oriented to herself and place, answering questions appropriately. No distress. HEENT: No pallor, icterus or jaundice. LUNGS: Diminished with bibasilar crackles. HEART: S1, S2. Sinus rhythm. ABDOMEN: Soft, nontender, nondistended. Suprapubic catheter noted. EXTREMITIES: No cyanosis or clubbing. LABORATORY DATA/IMAGING STUDIES/MICROBIOLOGY: Please see the chart. ASSESSMENT: This is a 70-year-old female admitted on 05/23/2021 with malfunctioning suprapubic catheter, abnormal urinalysis, initially thought to have catheter-associated urinary tract infection (CAUTI). Smart catheter was placed. She had leukocytosis. Chest CT showed inspissated secretions with positive methicillin-resistant Staphylococcus aureus (MRSA) on nasal swab with right middle lobe and lower lobe consolidation and early infiltrate. C-reactive protein (CRP) was close to normal and normal procalcitonin. Oxygen level was 2 liters. Did not appear to have pneumonia clinically, without any worsening pulmonary symptoms. Patient was initially on vancomycin and switched to Augmentin 875 mg twice a day. Kidney cysts were evaluated. She was treated with 10 days of antibiotics for pneumonia. Augmentin has been completed. She is saturating 94% on room air and uses oxygen at home, currently at baseline. Patient is a MRSA carrier. No evidence of MRSA pneumonia. She had recent COVID exposure and has been put on quarantine. IMPRESSION: 1. Pneumonia. Completed antibiotics. May be discharged per infectious disease after patient's family has completed 10 day quarantine, which will be June 09, 2021. 2. Recurrent catheter-associated urinary tract infection (CAUTI). Finished antibiotics. 3. Left heel deep tissue injury. Wound care per Dr. Coppola. 4. History of neurogenic bladder with malfunctioning Smart catheter. Smart catheter placed on 05/23/2021. Outpatient urology referral for cystostomy. 5. Chronic leukocytosis. Completed antibiotics per infectious disease (ID). No further antibiotics needed. 6. Iron deficiency anemia. Held Eliquis on 06/05/2021. Transfusion has been given. Currently back on Eliquis. May need outpatient colonoscopy and continued on ferrous sulfate. 7. History of pulmonary embolism (PE). On chronic Eliquis. 8. Congestive heart failure, compensated. On Lasix. 9. History of vascular dementia and Alzheimer's with acute delirium. On memantine and donepezil. Delirium has resolved. 10. Chronic hypoxic respiratory failure/ chronic obstructive pulmonary disease (COPD). Compensated. On formoterol, albuterol and 2 liters oxygen. 11. Type 2 diabetes. Continued on Levemir, Lispro and gabapentin due to neuropathy. 12. Hypertension. Controlled on losartan and diltiazem. Diltiazem reduced in dose due to episodes of low blood pressure. 13. History of left breast cancer. On chronic letrozole. 14. Obstructive sleep apnea (GILBERT). On continuous positive airway pressure (CPAP). 15. Depression. On sertraline. 16. Chronic osteoporosis. On alendronate, calcium and vitamin D. 17. Bedpan and Lauren lift at baseline. 18. History of methicillin-resistant Staphylococcus aureus (MRSA) carrier. 19. No pneumonia, per infectious disease (ID). 20. Chronic pain. On oxycodone. DISPOSITION: Patient may be discharged home once the family is out of quarantine for COVID. PLAN: [id number]
[2021-06-08] MEDS: LACTOBACILLUS ACIDOPHILUS CAP (BACID) PO SCH (18:12)
[2021-06-08] MEDS: DONEPEZIL 5 MG TAB PO SCH (20:39)
[2021-06-08] MEDS: SERTRALINE HCL 50 MG TAB PO SCH (20:39)
[2021-06-08] MEDS: LETROZOLE 2.5 MG TAB PO SCH (20:39)
[2021-06-08] MEDS: ATORVASTATIN 20 MG TAB PO SCH (20:40)
[2021-06-08] MEDS: diltiaZEM **CD** 180 MG CAP PO SCH (20:41)
[2021-06-09 06:00] VITALS: BP 146/58
[2021-06-09] MEDS: FORMOTEROL FUMARATE 20 MCG/2 ML INHALATION SOLUTION (PERFOROMIST) INH SCH ×2 (07:38→18:06)
[2021-06-09] MEDS: GABAPENTIN 100 MG CAP PO SCH ×3 (08:51→20:51)
[2021-06-09] MEDS: HumaLOG INSULIN (NovoLOG) PER UNIT SC SCH ×4 (08:51→20:50)
[2021-06-09] MEDS: APIXABAN 5 MG TAB (ELIQUIS) PO SCH ×2 (08:52→20:53)
[2021-06-09] MEDS: CALCIUM/VITAMIN D 500 MG TAB PO SCH (08:52)
[2021-06-09] MEDS: guaiFENesin ER 600 MG TAB PO SCH ×2 (08:52→20:52)
[2021-06-09] MEDS: FUROSEMIDE 20 MG TAB PO SCH (08:52)
[2021-06-09] MEDS: POTASSIUM CHLORIDE 10MEQ SR TABLET PO SCH ×2 (08:52→20:52)
[2021-06-09] MEDS: FERROUS SULFATE 325MG TAB PO SCH ×2 (08:52→20:51)
[2021-06-09] MEDS: LOSARTAN 25 MG TAB PO SCH (08:52)
[2021-06-09] MEDS: MEMANTINE 5MG TABLET (NAMENDA) PO SCH ×2 (08:53→20:52)
[2021-06-09] MEDS: DOCUSATE SODIUM 100MG CAPSULE PO SCH ×2 (08:53→20:53)
[2021-06-09] MEDS: MIRALAX *UNIT DOSE* 17GM PACKET PO SCH (08:53)
[2021-06-09] MEDS: LEVEMIR (INSULIN DETEMIR) 1 UNITS/0.01ML SC SCH (08:55)
[2021-06-09] MEDS: OCUVITE 1 TAB PO SCH (08:55)
[2021-06-09] MEDS: LACTOBACILLUS ACIDOPHILUS CAP (BACID) PO SCH (17:46)
[2021-06-09] MEDS: LETROZOLE 2.5 MG TAB PO SCH (20:51)
[2021-06-09] MEDS: DONEPEZIL 5 MG TAB PO SCH (20:52)
[2021-06-09] MEDS: ATORVASTATIN 20 MG TAB PO SCH (20:52)
[2021-06-09] MEDS: SERTRALINE HCL 50 MG TAB PO SCH (20:52)
[2021-06-09] MEDS: diltiaZEM **CD** 180 MG CAP PO SCH (20:53)
[2021-06-10] MEDS: ALENDRONATE 35MG TABLET PO SCH (05:08)
[2021-06-10 06:00] VITALS: BP 118/55
[2021-06-10] MEDS: FORMOTEROL FUMARATE 20 MCG/2 ML INHALATION SOLUTION (PERFOROMIST) INH SCH ×2 (08:38→19:48)
[2021-06-10] MEDS ORDERED: INSUDET SC (09:19)
[2021-06-10] MEDS ORDERED: CARD180C4 PO (09:19)
[2021-06-10] MEDS: MEMANTINE 5MG TABLET (NAMENDA) PO SCH ×2 (10:46→21:12)
[2021-06-10] MEDS: guaiFENesin ER 600 MG TAB PO SCH ×2 (10:46→21:13)
[2021-06-10] MEDS: FUROSEMIDE 20 MG TAB PO SCH (10:46)
[2021-06-10] MEDS: APIXABAN 5 MG TAB (ELIQUIS) PO SCH ×2 (10:46→21:12)
[2021-06-10] MEDS: POTASSIUM CHLORIDE 10MEQ SR TABLET PO SCH ×2 (10:47→21:13)
[2021-06-10] MEDS: LOSARTAN 25 MG TAB PO SCH (10:50)
[2021-06-10] MEDS: CALCIUM/VITAMIN D 500 MG TAB PO SCH (10:50)
[2021-06-10] MEDS: OCUVITE 1 TAB PO SCH (10:50)
[2021-06-10] MEDS: DOCUSATE SODIUM 100MG CAPSULE PO SCH ×2 (10:51→21:12)
[2021-06-10] MEDS: FERROUS SULFATE 325MG TAB PO SCH ×2 (10:51→21:13)
[2021-06-10] MEDS: GABAPENTIN 100 MG CAP PO SCH ×3 (10:51→21:13)
[2021-06-10] MEDS: MIRALAX *UNIT DOSE* 17GM PACKET PO SCH (10:51)
[2021-06-10] MEDS: LEVEMIR (INSULIN DETEMIR) 1 UNITS/0.01ML SC SCH (10:52)
[2021-06-10] MEDS: HumaLOG INSULIN (NovoLOG) PER UNIT SC SCH ×4 (10:53→21:00)
[2021-06-10] MEDS: LACTOBACILLUS ACIDOPHILUS CAP (BACID) PO SCH (18:45)
[2021-06-10] MEDS: diltiaZEM **CD** 180 MG CAP PO SCH (21:00)
[2021-06-10] MEDS: DONEPEZIL 5 MG TAB PO SCH (21:12)
[2021-06-10] MEDS: LETROZOLE 2.5 MG TAB PO SCH (21:13)
[2021-06-10] MEDS: SERTRALINE HCL 50 MG TAB PO SCH (21:13)
[2021-06-10] MEDS: ATORVASTATIN 20 MG TAB PO SCH (21:13)
[2021-06-11 06:00] VITALS: BP 118/50
[2021-06-11] MEDS: GABAPENTIN 100 MG CAP PO SCH (08:23)
[2021-06-11] MEDS: FERROUS SULFATE 325MG TAB PO SCH (08:24)
[2021-06-11] MEDS: DOCUSATE SODIUM 100MG CAPSULE PO SCH (08:25)
[2021-06-11] MEDS: MIRALAX *UNIT DOSE* 17GM PACKET PO SCH (08:25)
[2021-06-11] MEDS: POTASSIUM CHLORIDE 10MEQ SR TABLET PO SCH (08:25)
[2021-06-11] MEDS: MEMANTINE 5MG TABLET (NAMENDA) PO SCH (08:25)
[2021-06-11] MEDS: guaiFENesin ER 600 MG TAB PO SCH (08:25)
[2021-06-11] MEDS: CALCIUM/VITAMIN D 500 MG TAB PO SCH (08:25)
[2021-06-11 08:31] VITALS: BP 123/70
[2021-06-11] MEDS: FUROSEMIDE 20 MG TAB PO SCH (08:31)
[2021-06-11] MEDS: LOSARTAN 25 MG TAB PO SCH (08:31)
[2021-06-11] MEDS: APIXABAN 5 MG TAB (ELIQUIS) PO SCH (08:31)
[2021-06-11] MEDS: LEVEMIR (INSULIN DETEMIR) 1 UNITS/0.01ML SC SCH (08:32)
[2021-06-11] MEDS: HumaLOG INSULIN (NovoLOG) PER UNIT SC SCH ×2 (08:32→13:09)
[2021-06-11] MEDS: FORMOTEROL FUMARATE 20 MCG/2 ML INHALATION SOLUTION (PERFOROMIST) INH SCH (08:51)
[2021-06-11] MEDS: OCUVITE 1 TAB PO SCH (09:17)
[2021-06-11 10:27] LABS: HEMATOCRIT 38.9 % (36.0-47.0); HEMOGLOBIN 11.1 g/dl (12.0-15.5); MEAN CORPUSCULAR HEMOGLOBIN 24.7 pg (27.0-33.0); MEAN CORPUSCULAR HGB CONC 28.5 g/dl (32.0-36.5); MEAN CORPUSCULAR VOLUME 86.6 fl (80.0-96.0); PLATELET COUNT, AUTOMATED 163 10^3/uL (150-450); RED BLOOD COUNT 4.49 10^6/uL (4.00-5.40); WHITE BLOOD COUNT 8.3 10^3/uL (4.0-10.0)
[2021-06-11 10:59] LABS: ALBUMIN 2.7 GM/DL (3.2-5.2); ALT/SGPT 22 U/L (12-78); BILIRUBIN,TOTAL 0.3 MG/DL (0.2-1.0); BLOOD UREA NITROGEN 19 MG/DL (7-18); CALCIUM LEVEL 8.9 MG/DL (8.8-10.2); CARBON DIOXIDE LEVEL 28 MEQ/L (21-32); CHLORIDE LEVEL 107 MEQ/L (98-107); CREATININE FOR GFR 0.92 MG/DL (0.55-1.30); GLOMERULAR FILTRATION RATE > 60.0 (>39); GLUCOSE, FASTING 339 MG/DL (70-100); POTASSIUM SERUM 3.9 MEQ/L (3.5-5.1); SODIUM LEVEL 143 MEQ/L (136-145); TOTAL PROTEIN 5.6 GM/DL (6.4-8.2)
--- NOTE | 2021-06-11 23:18 | DS.PDOC ---
Discharge Summary General Date of Admission May 23, 2021 at 01:03 Date of Discharge 06/11/21 Discharge Summary PROCEDURES PERFORMED DURING STAY: None ADMITTING DIAGNOSES: ? community acquired aspiration RML/RLL Iron deficiency anemia CAUTI, recurrent MRSA POSITIVE Neurogenic bladder with malfunctioning suprapubic catheter Hypernatremia Hypokalemia HFpEF Acute delirium and chronic dementia COPD on 2 liters of home. Chronic hypoxic respiratory failure on 2 liters all the time. Type 2 diabetes, insulin-dependent. Hypertension History of left breast cancer, ER positive. GILBERT on CPAP. Depression. Chronic osteoporosis. History of MRSA pneumonia DISCHARGE DIAGNOSES: ? community acquired aspiration RML/RLL, hx of chronic leukocytosis with abnormal CT Iron deficiency anemia possibly 2/2 to slow GI bleed?, occult blood +, s/p transfusion this admission CAUTI, recurrent Deep tissue injury of heel MRSA POSITIVE Neurogenic bladder with malfunctioning suprapubic catheter Hypernatremia, resolved. Hypokalemia, resolved. CHF, diastolic dysfunction, compensated. Acute delirium and chronic dementia, resolved COPD on 2 liters of home. Chronic hypoxic respiratory failure on 2 liters all the time. Type 2 diabetes, insulin-dependent. Hypertension, controlled History of left breast cancer, ER positive. GILBERT on CPAP. Depression. Chronic osteoporosis. History of MRSA pneumonia COMPLICATIONS/CHIEF COMPLAINT: Suprapubic Catheter Dysfunction. HISTORY OF PRESENT ILLNESS: 70-year-old female with a history of neurogenic bladder, GILBERT, CHF, COPD on 2 L oxygen at home, bedbound, presents from home due to suprapubic catheter dysfunction. The suprapubic catheter was removed in the ER and Lino catheter w as placed after evaluation with urology. The patient was brought in by her daughter because the patient's daughter reported that she could not take care of her at home any longer. The patient was unaware of this and does not want to be in the hospital upon medical interview. She reports that she is not having any acute symptoms. I explained to the patient that her suprapubic catheter was not working and therefore we had to change it out for a Lino catheter. Even after explaining to her about the importance of being medically stable before she can be placed at home or anywhere else, the patient repeatedly asked why she was in the hospital. Patient's chart has her discharge summary from [facility] and [facility] form reporting that the patient is DNR, intubation trial. Patient's daughter's name is Angelica Benito to be contacted at [phone]. HOSPITAL COURSE: The following issues were addressed while being treated here: Deep tissue injury in left heel -Wound care consulted -Follow-up outpatient with Dr. Wyman Recurrent CAUTI -Finished antibiotics. -Follow-up urology outpatient Neurogenic bladder with malfunctioning suprapubic catheter -suprapubic catheter changed to lino catheter on 05/23/21 -Patient was ordered Augmentin by urologist outpatient this was completed. -Follow-up urology outpatient Persistent leukocytosis with abnormal CT chest -chest CT finding of pneumonia although reviewed data chest CT with Pulmonary. They feel this is chronic with atelectasis. Procalcitonin and sed rate and CRP are within normal limits. -barium swallow no aspiration Chronic Leucocytosis -between 12K to 14K, confirmed by PCP notes and has been getting worked up as outpatient -Finished antibiotics course -No further need for antibiotics, WBC within normal limits Iron deficiency anemia possibly 2/2 to ? slow, chronic GI bleed -+ occult blood + also anthony bloody stool noted on 06/05/21 for which eliquis. was held -s/p transfusion this admission -patient is on eliquis currently without drop in H/H -may need outpatient colonoscopy. -continue ferrous sulfate. -Needs to be watched, if s/s of bleed occur, stop eliquis H/o Pulmonary embolism -on eliquis -Advised to monitor for s/s of bleeding -Stop eliquis if symptoms are seen CHF, diastolic dysfunction, compensated. -continue lasix Dementia Vascular and Alzheimer's with acute delirium -Delirium has resolved -on memantine and donepezil. COPD with chronic hypoxic respiratory failure -formoterol and albuterol -on 2 liters of home. Type 2 diabetes with neuropathy -c/w home meds Hypertension, controlled -on losartan and diltiazem History of left breast cancer, ER positive. -On letrozole GILBERT on CPAP. Depression -sertraline Chronic osteoporosis. -alendronate, calcium and vit D Bed bound and royal lift. Chronic pain. -oxycodone DISCHARGE MEDICATIONS: Please see below. ALLERGIES: Please see below. PHYSICAL EXAMINATION ON DISCHARGE: Vitals: see below General: No distress cooperative pleasant, awake alert oriented x3 HEENT: No JVD, thyromegaly or cervical lymphadenopathy. Moist mucous membranes Lungs: clear b/l upper lobes. No wheezing, rhonchi or rales Heart: S1, S2, sinus rhythm. Abdomen: Obese, soft, nontender, non-distended. : lino catheter Extremities: No cyanosis, clubbing. Neuro: Cranial nerves II-XII intact, no focal deficits Laboratory data, imaging study, microbiology: Please see the chart. Modified barium swallow 05/29/2021: No aspiration LABORATORY DATA: Please see below. PROGNOSIS: Good ACTIVITY: As tolerated DIET: consistent carb, 2 gm sodium DISPOSITION: 06 Home Health Service. DISCHARGE INSTRUCTIONS / ITEMS TO FOLLOWUP ON ON OUTPATIENT: 1. Continue lino to gravity urology appt 1 wk, pcp 5 days. 2. Recommend outpatient colonoscopy to further investigate iron deficiency anemia. Your blood levels have remained stable and you aer back on eliquis. If s/s of bleeding occur, stop eliquis immediatlely and notify provider/medical professional. DISCHARGE CONDITION: Stable TIME SPENT ON DISCHARGE: 35 minutes. Vital Signs/I&Os Vital Signs Date Time Temp Pulse Resp B/P (MAP) Pulse Ox O2 Delivery O2 Flow Rate FiO2 06/11/21 08:31 123/70 06/11/21 06:00 97.1 76 18 95 NIPPV (BIPAP/CPAP) I&O- Last 24 Hours up to 6 AM 06/11/21 06:00 Intake Total 615 ml Output Total 925 ml Balance -310 ml Laboratory Data Labs 24H Laboratory Tests 2 06/11/21 05:45: Bedside Glucose (Misc Panel) 154H 06/11/21 10:01: Nucleated Red Blood Cells % (auto) 0.0, Anion Gap 8, Glomerular Filtration Rate > 60.0, Calcium Level 8.9, Total Bilirubin 0.3, Aspartate Amino Transf (AST/ SGOT) 9, Alanine Aminotransferase (ALT/SGPT) 22, Alkaline Phosphatase 116, Total Protein 5.6L, Albumin 2.7L, Albumin/Globulin Ratio 0.9L 06/11/21 11:22: Bedside Glucose (Misc Panel) 262H CBC/BMP Laboratory Tests 06/11/21 10:01 FSBS Laboratory Tests Test 06/11/21 05:45 06/11/21 11:22 Range/Units Bedside Glucose (Misc Panel) 154 262 83-110 MG/DL Discharge Medications Scheduled Alendronate Sodium (Alendronate Sodium) 35 Mg Tablet, 35 MG PO QWEEK, (Reported) MONDAYS Apixaban (Eliquis) 5 Mg Tablet, 5 MG PO BID, (Reported) Atorvastatin Calcium (Atorvastatin Calcium) 20 Mg Tablet, 20 MG PO QHS, (Reported) Calcium Carbonate/Vitamin D3 (Calcium 500-Vit D3 200 Caplet) 1 Each Tablet, 1 TAB PO DAILY, (Reported) TAKES AT LUNCH Capsaicin (Arthritis Pain Relief) 0.1% Cream..g., 1 DOSE TOP QID, (Reported) USES ON BACK Cetirizine HCl (Cetirizine HCl) 10 Mg Tablet, 10 MG PO QHS, (Reported) Diltiazem Hcl (Cardizem Cd) 180 Mg Cap.er.24h, 180 MG PO QHS Donepezil HCl (Donepezil HCl) 10 Mg Tablet, 10 MG PO QHS, (Reported) Famotidine (Famotidine) 20 Mg Tablet, 20 MG PO QHS, (Reported) Fluconazole (Fluconazole) 150 Mg Tablet, 150 MG PO DAILY, (Reported) STARTED ON 05/21/21 Formoterol Fumarate (Perforomist) 20 Mcg/2 Ml Vial.neb, 20 MCG INH BID, (Reported) Furosemide (Furosemide) 20 Mg Tablet, 20 MG PO DAILY, (Reported) Gabapentin (Neurontin) 100 Mg Capsule, 100 MG PO TID, (Reported) Insulin Aspart (Novolog Flexpen) 100 Unit/1 Ml Insuln.pen, 13 UNITS SC AC, (Reported) Insulin Detemir (Levemir) 100 Unit/1 Ml Vial, 15 UNITS SC QAM L.acidoph/L.bulg/B.bif/S.therm (Bacid Caplet) 1 Each Tablet, 1 TAB PO QPM, (Reported) TAKES AT DINNER Letrozole (Letrozole) 2.5 Mg Tablet, 2.5 MG PO QHS, (Reported) Losartan Potassium (Losartan Potassium) 25 Mg Tablet, 25 MG PO DAILY, (Reported) Memantine HCl (Namenda) 10 Mg Tablet, 10 MG PO BID, (Reported) Methenamine Hippurate (Methenamine Hippurate) 1 Gm Tablet, 1 GM PO BID, (Reported) Multivitamins (Thera M Plus Tablet) 1 Each Tablet, 1 TAB PO DAILY, (Reported) Polyethylene Glycol 3350 (Miralax) 17 Gm Powd.pack, 17 GM PO DAILY, (Reported) Potassium Chloride (Potassium Chloride) 10 Meq Tab.er.prt, 10 MEQ PO BID, (Reported) Revefenacin (Yupelri) 175 Mcg/3 Ml Vial.neb, 175 MCG INH DAILY, (Reported) Semaglutide (Ozempic) 1 Mg/0.75 Ml (4 Mg/3 Ml) Pen.injctr, 1 MG SQ QWEEK, (Reported) THURSDAY MORNINGS Sertraline Hcl (Sertraline HCl) 50 Mg Tablet, 50 MG PO QHS, (Reported) Vits A,C,E/Lutein/Minerals (Ocuvite with Lutein Tablet) 1 Each Tablet, 1 TAB PO DAILY, (Reported) TAKES AT LUNCHTIME Scheduled PRN Albuterol Sulf (Albuterol Sulfate) 2.5 Mg/3 Ml Vial.neb, 2.5 MG INH Q4H PRN for SHORTNESS OF BREATH, (Reported) Albuterol Sulfate (Proair Hfa) 8.5 Gm Hfa.aer.ad, 2 PUFF INH Q6H PRN for SHORTNESS OF BREATH, (Reported) Nystatin (Nystatin Powder) 15 Gm Powder, 1 DOSE TOP BID PRN for RASH, (Reported) USES UNDER SKIN FOLDS AND BREASTS Ondansetron (Ondansetron Odt) 4 Mg Tab.rapdis, 4 MG PO DAILY PRN for NAUSEA, (Reported) Oxycodone HCl (Oxycodone HCl) 5 Mg Tablet, 5 MG PO BID PRN for SEVERE PAIN (PS 8-10), (Reported) Allergies Coded Allergies: Sulfa (Sulfonamide Antibiotics) (Verified Allergy, Intermediate, HIVES, 11/30/19) heparin (porcine) (Verified Allergy, Intermediate, HIVES, 11/30/19) latex (Verified Allergy, Intermediate, hives, 05/22/21) Aby Nicole MD Jun 11, 2021 23:18
== END 2021-06-11 14:22 | disposition home health service (06) | DRG 698 ==
LOC: EDBD 15:05 → M ED 15:05 → M ED INP 05-23 01:03 → EEVIPCON 05-23 01:03 → ENRESERV 05-23 02:29 → M MSPAV 05-23 03:14
PROVIDERS: ADMIT Internal Medicine; ATTEND Internal Medicine
DX: T83.028A Displacement of other urinary catheter, initial encounter (principal); J18.9 Pneumonia, unspecified organism; I50.32 Chronic diastolic (congestive) heart failure; E87.0 Hyperosmolality and hypernatremia; J96.11 Chronic respiratory failure with hypoxia; J98.11 Atelectasis; T83.518A Infection and inflammatory reaction due to other urinary catheter, initial encounter; F01.50 Vascular dementia, unspecified severity, without behavioral disturbance, psychotic disturbance, mood disturbance, and anxiety; N31.9 Neuromuscular dysfunction of bladder, unspecified; J44.9 Chronic obstructive pulmonary disease, unspecified; E11.649 Type 2 diabetes mellitus with hypoglycemia without coma; E11.40 Type 2 diabetes mellitus with diabetic neuropathy, unspecified; Z79.4 Long term (current) use of insulin; D50.9 Iron deficiency anemia, unspecified; Z85.3 Personal history of malignant neoplasm of breast; G47.33 Obstructive sleep apnea (adult) (pediatric); M81.0 Age-related osteoporosis without current pathological fracture; F32.9 Major depressive disorder, single episode, unspecified; B95.62 Methicillin resistant Staphylococcus aureus infection as the cause of diseases classified elsewhere; Z79.01 Long term (current) use of anticoagulants; Z86.711 Personal history of pulmonary embolism; I11.0 Hypertensive heart disease with heart failure; Z79.899 Other long term (current) drug therapy; Z88.2 Allergy status to sulfonamides; Z91.040 Latex allergy status; Z88.8 Allergy status to other drugs, medicaments and biological substances; R29.6 Repeated falls; M19.90 Unspecified osteoarthritis, unspecified site; E83.51 Hypocalcemia; R13.10 Dysphagia, unspecified; K59.00 Constipation, unspecified; E66.01 Morbid (severe) obesity due to excess calories; Y84.6 Urinary catheterization as the cause of abnormal reaction of the patient, or of later complication, without mention of misadventure at the time of the procedure